=== PATIENT | male | born 1955 | race Caucasian/White ===

== ENCOUNTER 2018-09-30 15:09 | Outpatient (CLI) | payer MEDICARE, SELFPAY ==
--- NOTE | 2018-09-30 15:58 | DI.RAD_ITS ---
SYMPTOMS/DIAGNOSIS: ARTHRITIS RIGHT WRIST: No fracture or dislocation is seen. There is narrowing of the radiocarpal joint space. There is periarticular spurring. There are a few small degenerative subchondral cysts seen in the lunate and scaphoid. The lateral view is limited by motion. There are mild degenerative changes of the 1st carpometacarpal joint. Degenerative changes are also seen at the metacarpophalangeal joints. IMPRESSION: Degenerative changes, greatest at the radiocarpal joint. LEFT WRIST: There are severe degenerative changes of the 1st carpometacarpal joint. There is prominent associated spurring. There is also calcification seen near the triquetrum and pisiform. The bones appear normally mineralized. There are milder degenerative changes in the intercarpal regions. There are degenerative changes of the metacarpophalangeal joints, greatest at the 2nd metacarpophalangeal joint. IMPRESSION: Degenerative changes, greatest at the 1st carpometacarpal joint. Soft tissue calcifications are seen at the ventral aspect of the carpal region. RIGHT ANKLE: There is spurring at the medial malleolus and medial tibiotalar joint space narrowing. No talar dome defects are seen. There are mild degenerative changes at the talonavicular and talocalcaneal joints. There is mild spurring at the Achilles insertion on the calcaneus. IMPRESSION: Mild degenerative changes.
== END 2018-09-30 15:29 ==
PROVIDERS: PCP Internal Medicine; Visit Provider Internal Medicine
DX: M19.071 Primary osteoarthritis, right ankle and foot (principal); M19.031 Primary osteoarthritis, right wrist; M85.441 Solitary bone cyst, right hand; M18.11 Unilateral primary osteoarthritis of first carpometacarpal joint, right hand; M19.032 Primary osteoarthritis, left wrist; M18.12 Unilateral primary osteoarthritis of first carpometacarpal joint, left hand
CPT/HCPCS: 73110; 73610

== ENCOUNTER 2019-01-20 09:32 | Outpatient (CLI) | payer MEDICARE, SELFPAY ==
[2019-01-20 10:14] LABS: Abs Immature Grans 0.17 k/cumm (0.0-0.09); Absolute Basophil Count 0.03 k/cumm (0.0-0.2); Absolute Lymphocyte Count 1.26 k/cumm (1.2-3.4); Absolute Monocyte Count 0.79 k/cumm (0.11-0.7); Absolute Neutrophil Count 6.46 k/cumm (1.2-6.7); Basophils % 0.3; Eosinophils % 1.1; HCT 43.1 % (40.0-50.0); HGB 14.6 g/dL (13.5-17.5); Immature Grans % 1.9; Lymphocytes % 14.3; Mean Corp. HGB Concentration 33.9 g/dL (32.0-36.0); Mean Corpuscular Hemoglobin 27.5 pg (27.0-33.0); Mean Corpuscular Volume 81.2 fL (80-95); Mean Platelet Volume 10.2 fL (8.0-11.0); Neutrophils % 73.4; Platelet Count 250 x1000/uL (130-400); RBC 5.31 m/cumm (4.50-6.00); RBC Distribution Width 16.6 % (11.8-14.1); White Blood Cell Count 8.81 k/cumm (4.4-10.8)
[2019-01-20 11:01] LABS: ALT 18 U/L (12-78); AST 14 U/L (15-37); Albumin 2.9 g/dL (3.4-5.0); Alkaline Phosphatase 97 U/L (46-116); Anion Gap 8.9 mmol/L (3-11); BUN 13 mg/dL (7-18); Bilirubin, Total 1.1 mg/dL (0.2-1.0); CO2 29.1 mmol/L (21.0-32.0); CREATININE 0.72 mg/dL (0.70-1.30); Calcium 8.8 mg/dL (8.5-10.1); Chloride 97 mmol/L (98-107); Glucose 345 mg/dL (70-100); Potassium 4.9 mmol/L (3.5-5.1); Sodium 135 mmol/L (136-145); Total Protein 6.4 g/dL (6.4-8.2)
== END 2019-01-20 09:52 ==
PROVIDERS: PCP Internal Medicine; Visit Provider Internal Medicine Rheumatology
DX: M13.89 Other specified arthritis, multiple sites (principal); Z51.81 Encounter for therapeutic drug level monitoring
CPT/HCPCS: 36415; 80053; 85025

== ENCOUNTER 2019-02-18 17:49 | Outpatient (REF) | payer MEDICARE, SELFPAY ==
[2019-02-18 19:09] LABS: ALT 16 U/L (12-78); AST 5 U/L (15-37); Anion Gap 11.6 mmol/L (3-11); BUN 16 mg/dL (7-18); CO2 28.4 mmol/L (21.0-32.0); Calcium 8.8 mg/dL (8.5-10.1); Chloride 100 mmol/L (98-107); Glucose 151 mg/dL (70-100); Potassium 3.5 mmol/L (3.5-5.1); Sodium 140 mmol/L (136-145)
== END 2019-02-18 18:09 ==
LOC: NCHCN 17:49
PROVIDERS: PCP Internal Medicine; Visit Provider Nurse Practitioner Family
DX: I10 Essential (primary) hypertension (principal); E78.5 Hyperlipidemia, unspecified
CPT/HCPCS: 80048; 84450; 84460

== ENCOUNTER 2019-05-26 11:19 | Outpatient (CLI) | payer MEDICARE, SELFPAY ==
[2019-05-26 11:56] LABS: Abs Immature Grans 0.24 k/cumm (0.0-0.09); Absolute Eosinophil Count 0.01 k/cumm (0.0-0.7); Absolute Lymphocyte Count 0.96 k/cumm (1.2-3.4); Absolute Monocyte Count 0.38 k/cumm (0.11-0.7); Basophils % 0.2; Eosinophils % 0.1; HGB 15.3 g/dL (13.5-17.5); Lymphocytes % 7.9; Mean Corp. HGB Concentration 34.8 g/dL (32.0-36.0); Mean Corpuscular Hemoglobin 30.5 pg (27.0-33.0); Mean Corpuscular Volume 87.8 fL (80-95); Mean Platelet Volume 10.2 fL (8.0-11.0); Monocytes % 3.1; Neutrophils % 86.7; Platelet Count 228 x1000/uL (130-400); RBC 5.01 m/cumm (4.50-6.00); RBC Distribution Width 14.6 % (11.8-14.1); White Blood Cell Count 12.14 k/cumm (4.4-10.8)
[2019-05-26 12:16] LABS: Absolute Basophil Count 0.02 k/cumm (0.0-0.2); Absolute Neutrophil Count 10.53 k/cumm (1.2-6.7)
[2019-05-26 12:55] LABS: ALT 22 U/L (16-63); AST 10 U/L (15-37); Albumin 3.9 g/dL (3.4-5.0); Alkaline Phosphatase 65 U/L (46-116); BUN 17 mg/dL (7-18); Bilirubin, Total 1.2 mg/dL (0.2-1.0); CREATININE 0.95 mg/dL (0.70-1.30); Calcium 9.5 mg/dL (8.5-10.1); Chloride 99 mmol/L (98-107); Glucose 253 mg/dL (70-100); Potassium 5.2 mmol/L (3.5-5.1); Sodium 137 mmol/L (136-145); Total Protein 7.1 g/dL (6.4-8.2)
== END 2019-05-26 11:39 ==
PROVIDERS: PCP Internal Medicine; Visit Provider Internal Medicine Rheumatology
DX: M13.89 Other specified arthritis, multiple sites (principal); Z51.81 Encounter for therapeutic drug level monitoring; Z79.899 Other long term (current) drug therapy
CPT/HCPCS: 36415; 80053; 85025

== ENCOUNTER 2020-03-29 14:29 | Outpatient (REF) | payer SELFPAY ==
[2020-03-29 22:02] LABS: COMMENT (LAB VIEW ONLY) 114.65 mg/dL; Microalb ug/mg Crea 52.9 ug/mg Cr
== END 2020-03-29 14:49 ==
LOC: NCHCN 14:29
PROVIDERS: PCP Internal Medicine; Visit Provider Nurse Practitioner Family
DX: E11.9 Type 2 diabetes mellitus without complications (principal)
CPT/HCPCS: 82043; 82570

== ENCOUNTER 2020-06-22 09:39 | Outpatient (REF) | payer SELFPAY ==
[2020-06-27 15:03] LABS: Patient Race White; SARS-CoV-2 RNA Undetected (Undetected); SARS-CoV-2 Specimen Source Nasal
== END 2020-06-22 09:59 ==
LOC: NCHCN 09:39
PROVIDERS: PCP Internal Medicine; Visit Provider Nurse Practitioner Family
DX: Z11.59 Encounter for screening for other viral diseases (principal)
CPT/HCPCS: U0003

== ENCOUNTER 2020-10-04 13:13 | Outpatient (REF) | payer SELFPAY ==
[2020-10-05 14:39] LABS: COVID-19 RT-PCR UVMMC Result Negative (Negative)
== END 2020-10-04 13:14 | disposition home or self-care (01) ==
LOC: NCHCN 13:13
PROVIDERS: PCP Internal Medicine; Visit Provider Internal Medicine
DX: Z20.822 Contact with and (suspected) exposure to COVID-19 (principal)
CPT/HCPCS: U0003

== ENCOUNTER 2021-06-19 04:01 | Inpatient (IN) | payer MEDICARE, SELFPAY ==
[2021-06-19] VITALS (113 sets, daily range): BP systolic 108–244; BP diastolic 57–222; PULSE 68–108; RESP 11–34; TEMP 36.1–37; O2SAT 88–96
--- NOTE | 2021-06-19 | DI.MRI_ITS ---
Exam(s) MR BRAIN WO/W EXAM: MR BRAIN WO/W CLINICAL HISTORY: bleed on CT. TECHNIQUE: Multiplanar multisequence MRI of the brain was performed. CONTRAST MATERIAL: IV Contrast: 20 ML of Dotarem contrast administered. COMPARISON: CT CT HEAD WO from 06/19/2021 MR MR ANGIO BRAIN WO from 06/19/[address] HEAD WO from 06/19/2021 FINDINGS: VENTRICLES AND EXTRA AXIAL SPACES: Normal in size and morphology for the patient's age. HEMORRHAGE: 5 millimeter rounded focus high T1 signal. No surrounding edema. No enhancement. Marke d blooming artifact on susceptibility weighted images, consistent with a hemorrhagic focus. CEREBRAL PARENCHYMA: No focus of restricted diffusion to suggest acute infarct. No space-occupying le german identified. Minimal white matter changes consistent with microvascular disease. MIDLINE SHIFT: None. BRAINSTEM/CEREBELLUM: Normal. CALVARIUM: Normal. ENHANCEMENT: No suspicious enhancement identified. VISUALIZED PARANASAL SINUSES/MASTOIDS: Clear. OTHER FINDINGS: High right frontal scalp lipoma. IMPRESSION: 5 millimeter hemorrhagic focus right frontal lobe anterior to right lateral ventricle. No surroundin g edema. No evidence of mass.. DATA REPOSITORY:
--- NOTE | 2021-06-19 04:00 | RT.EKG_ITS ---
APPROVED REPORT Exam: Resting ECG Reason for Exam: ?seizure Patient Location: E HR:79 bpm ECG Measurements Heart Rate [address] 224 P 68 QRSd 89 QRS 106 QT 359 T 61 QTc 411 Conclusion Sinus rhythm...normal P axis, V-rate 60- [address] interval...CT >220, V-rate 50- 90 Right axis deviation...QRS axis ( 86,316)
--- NOTE | 2021-06-19 04:15 | DI.CT_ITS ---
Exam(s) CT HEAD WO EXAM: CT HEAD WO CLINICAL HISTORY: ?seizure. TECHNIQUE: Imaging Protocol: Axial computed tomography images with coronal and sagittal reformatted images were created and reviewed COMPARISON: No exams were available for comparison FINDINGS: Ventricles and Extra axial spaces: Normal in size and morphology for the patient's age. Hemorrhage: There is a 5 x 8 millimeter rounded area of high attenuation in the right frontal lobe an terior to the right lateral ventricle which may represent a small focus of hemorrhage. There is no s urrounding mass effect. Cerebral parenchyma: Minimal white matter changes. Minimal atrophy. Midline shift: None. Brainstem/Cerebellum: Normal. Calvarium: Normal. Visualized Paranasal sinuses/Mastoids: Clear. Soft Tissues: Unremarkable. IMPRESSION: Small focus of high attenuation adjacent to the right lateral ventricle could represent a small hemor rhagic focus or other hemorrhagic lesion. RADIATION DOSE DELIVERED: 909.51mGy.cm Total DLP DATA REPOSITORY: All CT scans at this facility are submitted to the National Radiology Data Registry (NRDR) Dose Index Registry (DIR) with the [employer] (A[employer]). RADIATION OPTIMIZATION: All CT scans at this facility use at least one of these dose optimization te chniques: automated exposure control; mA and/or kV adjustment per patient size (includes targeted exa ms where dose is matched to clinical indication); or iterative reconstruction.
--- NOTE | 2021-06-19 04:15 | DI.RAD_ITS ---
Exam(s) XR CHEST 2V PA LATERAL EXAM: XR CHEST 2V PA LATERAL CLINICAL HISTORY: ?syncope TECHNIQUE: 2D digital imaging was performed. COMPARISON: No exams were available for comparison FINDINGS: The exam is limited by patient body habitus and positioning. Abdominal soft tissue somewhat obscure the lower lung field on the AP view. The heart size is within normal limits for projection. Aorta i s mildly tortuous. No focal infiltrate, effusion or pulmonary edema is seen. Degenerative changes a re noted in the spine. IMPRESSION: No acute abnormality. DATA REPOSITORY: RADIATION DOSE DELIVERED:
--- NOTE | 2021-06-19 04:20 | ED.GENADUL_ITS ---
Discharge Plan Disposition Patient Disposition: [facility] INPATIENT Condition: Stable Discharge Details Clinical Impression: Episode of shaking Primary Care Provider: Courtney Bertrand ED Provider: Kendall Ribeiro Home Meds and New Rx's Prescriptions: No Action No Known Home Meds RF: 0 Medical Decision Making 66 yo male who initially told me he had no medical history but then his arrived after initial exam and said he has a history of lung cancer diagnosed in 1997 and is on an expiremental drug for lung cancer currently he receives at [facility] (I could [place] find any [place] [facility] [place] their [place] medical record[place] comes in with getting lightheaded when standing and then has involuntary movements of his arms and legs when he starts to walk. He only has this episode when standing then starting to walk He denies any pain during this episodes and is awake during them. The episodes started around 1am when he got up from bed and went to the bathroom. Nursing had to get him out of his car and came in by wheel chair. When I evaluated him he is in his bed laying with no complaints, caox4. He denies headache, neck pain, fevers, chills, chest pain, shortness of breath, abdominal pain. He has no tremors or other movements when laying in bed. I had him stand up and he took one step and he then started to have rhythmic movement of both arms and legs and lasted about 2 minutes after he sat down. He has no focal neuro deficits on exam when in the stretcher, no deficits in sensation and normal strength, CN II-XII intact. Unclear etiology for his symptoms when he stands, could be orthostasis induced though also possibility of seizures. Will evaluate with ekg, head ct, cxr given his lung cancer history to evaluate for lung mass, and evaluate for possible electrolyte abnormalities. labs unremarkable other than glucose of 400 and normal anion gap, suspect undiagnosed diabetes. CT head shows small focus of hyperdensity in the right frontalperiventricular white matter suspicious of hemorrhage or hemorrhagic lesion and recommend MRi for further evaluation. Discussed with pt who continues to have no symptoms when laying down. Will discuss with hospitalist for admission for mri and further workup Differential Diagnosis Differential Diagnosis: orthostasis, seizure, tremor Imaging Data Radiologic Study: Attestation: I personally reviewed and interpreted this imaging study as follows: Imaging: CT Scan Radiologic Study #2: Attestation: I personally reviewed and interpreted this imaging study as follows: Imaging: X-Ray My impression: no acute findings ECG Data Attestation: I personally reviewed and interpreted this ECG (s) as follows: Prior ECG tracings: not available for review Interpretation: sinus rhythm, rate of 80, no acute st t wave ischemic findings HPI General Mode of arrival: wheelchair . Date/Time Provider Initiated Documentation: 06/19/21 04:06 . Limitations to Documentation: no limitations . Information obtained by: patient and family . History of Present Illness 66 year old M presents to the emergency department with the chief complaint of shaking when standing up, described as moderate, Patient reports no radiation. Patient started experiencing this hour(s) (6) and it has been intermittent. No relieving factors improve symptom(s), Other factors that w orsen symptoms (standing up) . Patient notes no other symptoms.. Related Data Home Medications Medication Instructions Recorded Confirmed Unknown [No Known Home Meds] 06/19/21 06/19/21 Allergies Allergy/AdvReac Type Severity Reaction Status Date / Time No Known Allergies Allergy Unverified 06/19/21 04:10 General Stated Complaint: GenMedical JAQUAN: 3 Review of Systems All systems reviewed & are unremarkable except as noted in HPI and below Constitutional Constitutional: Denies chills, Denies fever(s) and Denies weakness Cardiovascular Cardiovascular: Denies chest pain and Denies dyspnea Respiratory Respiratory: Denies cough and Denies dyspnea Gastrointestinal Gastrointestinal: Denies abdominal pain, Denies nausea and Denies vomiting Musculoskeletal Musculoskeletal: Denies joint swelling Neurologic Neurologic: Denies weakness [facility] Social History Smoking/Tobacco Use Status: Former Tobacco Use Smoking risk assessment performed?: Yes Alcohol Intake: never Drug use: Never Do you feel safe at home: Yes Do you feel safe in your relationship?: Yes Exam Const General: no acute distress Orientation: alert HENMT Head: normal to inspection Ears: external ears normal General nose exam: external nose normal Mouth: moist mucous membranes Eyes General: appearance normal, both eyes and all related structures Neck Neck: normal visual inspection Resp Effort & Inspection: normal respiratory effort and able to speak in complete sentences Cardio Rate: regular rate Skin General skin exam: no rashes or lesions noted Neuro General: patient alert and patient oriented x3 Extrem General: normal to inspection Psych Mental Status: mental status grossly normal Course Vital Signs Vital signs: Vital Signs Temperature 37.0 C 10/26/21 04:04 Pulse 85 06/19/21 04:04 Respiratory Rate 18 06/19/21 04:04 Blood Pressure 173/81 H 06/19/21 04:04 Pulse Oximetry 91 L 06/19/21 04:04 Temperature 37.0 C 06/19/21 04:04 Temperature Source Temporal Artery Scan 06/19/21 04:04 Pulse 85 06/19/21 04:04 Respiratory Rate 18 06/19/21 04:04 Respiratory Effort 06/19/21 04:08 Blood Pressure 173/81 H 06/19/21 04:04 Blood Pressure Position Supine 06/19/21 04:04 Pulse Oximetry 91 L 06/19/21 04:04 Oxygen Delivery Method Room Air 06/19/21 04:04 Oxygen Flow Rate 0 06/19/21 04:04 Pain Level 0 06/19/21 04:04
[2021-06-19 04:32] LABS: Abs Immature Grans 0.08 10^3/uL (0.0-0.06); Absolute Basophil Count 0.07 10^3/uL (0.0-0.2); Absolute Eosinophil Count 0.13 10^3/uL (0.0-0.7); Absolute Lymphocyte Count 1.33 10^3/uL (1.2-3.4); Absolute Monocyte Count 0.62 10^3/uL (0.1-0.8); Absolute Neutrophil Count 5.69 10^3/uL (1.2-6.7); BE (Venous) 3 mmol/L (-2-3); Basophils % 0.9; Eosinophils % 1.6; HCO3 (Venous) 29 mmol/L (23-28); HGB 16.7 g/dL (13.5-17.5); Lymphocytes % 16.8; MCHC 34.1 % (32.0-36.0); MCV 85.1 fL (80-95); MPV 10.6 fL (8.0-11.0); Monocytes % 7.8; Neutrophils % 71.9; Nucleated RBC 0 %; O2 Sat (Venous) 89 %; Platelet Count 180 10^3/uL (130-400); RBC 5.76 10^6/uL (4.36-5.78); RDW 12.8 % (11.8-14.1); RDW-SD 39.5 fL; TCO2 (Venous) 25 mmol/L (24-29); WBC 7.92 10^3/uL (4.4-10.8); pCO2 (Venous) 56 mmHg (41-51); pH (Venous) 7.32 (7.31-7.41); pO2 (Venous) 58 mmHg
[2021-06-19 04:33] LABS: Source Nasal/Nares
[2021-06-19 04:54] LABS: INR 0.9 (0.9-1.1); PTT Activated 22.7 sec (21.0-27.5); Prothrombin Time 9.3 sec (9.3-11.0)
[2021-06-19 04:55] LABS: ALT 26 U/L (16-63); AST 14 U/L (15-37); Albumin 3.5 g/dL (3.4-5.0); Alkaline Phosphatase 94 U/L (46-116); Anion Gap 6.7 mmol/L (3-11); BUN 20 mg/dL (7-18); Bilirubin, Direct 0.2 mg/dL (0.0-0.2); Bilirubin, Total 0.8 mg/dL (0.2-1.0); CO2 30.3 mmol/L (21.0-32.0); Chloride 99 mmol/L (98-107); Glucose 412 mg/dL (74-106); Sodium 136 mmol/L (136-145); TSH (W/Ref FT4) 2.93 uIU/mL (0.36-3.74); Total Protein 7.4 g/dL (6.4-8.2)
[2021-06-19 04:56] LABS: ETHANOL BLOOD < 3.0 mg/dL (<10); Troponin I < 0.05 ng/mL (<0.06)
--- NOTE | 2021-06-19 05:05 | DI.VRAD_ITS ---
Addendum created by Lisandro Lund DO on 06/19/2021 5:06:13 AM EDT: THIS REPORT CONTAINS FINDINGS THAT MAY BE CRITICAL TO PATIENT CARE. The findings were verbally communicated via telephone conference at 5:05 AM EDT on 06/19/2021 with Kendall Ribeiro. The findings were acknowledged and understood. Initial report created on 06/19/2021 5:05:16 AM EDT: PROCEDURE INFORMATION: Exam: CT Head Without Contrast Exam date and time: 06/19/2021 4:16 AM Age: 66 years old Clinical indication: Alteration of consciousness; Patient HX: ? Syncope, ? seizure TECHNIQUE: Imaging protocol: Computed tomography of the head without contrast. Other technique: STROKE PROTOCOL was implemented. COMPARISON: No relevant prior studies available. FINDINGS: Brain: There is 8 x 5 mm hyperdensity in the right frontal periventricular white matter adjacent the frontal horn of the right lateral ventricle (image 30 series 2). No adjacent edema is discernible. Dow-white matter differentiation is within normal limits. No mass effect or midline shift. No extra-axial fluid collection. Mild nonspecific patchy foci of periventricular white matter hypodensity. Cerebral ventricles: Ventricles, sulci and basal cisterns are within normal limits. Paranasal sinuses: Visualized sinuses are unremarkable. No fluid levels. Mastoid air cells: Visualized mastoid air cells are well aerated. Bones/joints: No acute fracture. Soft tissues: Unremarkable. IMPRESSION: Small focus of hyperdensity in the right frontal periventricular white matter, suspicious of hemorrhage or hemorrhagic lesion. No significant mass effect or brain herniation. ASSESSMENT: ASPECTS ([place] Stroke Program Early CT Score) is 10. Dictated and Authenticated by: Lisandro Lund MD. Ordering:TRACEY Argueta MD
--- NOTE | 2021-06-19 05:07 | DI.VRAD_ITS ---
PROCEDURE INFORMATION: Exam: XR Chest Exam date and time: 06/19/2021 4:16 AM Age: 66 years old Clinical indication: Other: Syncope TECHNIQUE: Imaging protocol: XR of the chest. Views: 2 views. COMPARISON: No relevant prior studies available. FINDINGS: Lungs: Unremarkable. No consolidation. Pleural spaces: Unremarkable. No pleural effusion. No pneumothorax. Heart/Mediastinum: Unremarkable. No cardiomegaly. Bones/joints: Unremarkable. IMPRESSION: No acute findings. Dictated and Authenticated by: Lisandro Lund MD. Ordering:TRACEY Argueta MD
[2021-06-19 05:45] LABS: Bilirubin Negative (Negative); Blood Negative (Negative); Clarity Clear (Clear); Glucose 500 mg/dL (Negative); Ketones Negative (Negative); Leukocyte Esterase Negative (Negative); Nitrite Negative (Negative); Urobilinogen 0.2 EU/dL (Up TO 0.2); pH 5.5 (5-8)
--- NOTE | 2021-06-19 05:46 | W.PM.HP.N ---
Date of service: 06/19/21 Time of Service: 05:46 Assessment and Plan Assessment and plan (1) Episode of shaking: Status: Acute Assessment and plan: I am not sure how to explain this, and in any case how, if at all, it might relate to brain lesion, which anatomically would not be expected to produce symptoms such as these. The spell itself is notably orthhostatic, but not (apparently) related to blood pressure (the caveat here is that he was asymptomatic during orthostatic BP check for me). Does not sound like seizure insofar as there was no alteration in consciousness despite bilateral symptoms. beyond this the symptoms appear to have resolved. It is possible there is some functional component. What is more definite then is: 1. Apparent hemorrhage in frontal lobe. MRI advised for further delineation. Perhaps hypertensive bleed, or perhaps underlying lesion. 2. HTN: will begin treatment. In light of DM will start with PRAFUL 3. DM: states he was once on Metformin. At current level of hyperglycemia will begin with low dose insulin, may be able to convert to oral agent at some point. History of Present Illness History of Present Illness Chief Complaint: body shaking with standing Narrative: 66 male with remote h/o lung CA (1990s per ER) and DM, at present has not been to doctor for many years. Tonight when getting up to go to bathroom experienced a total body shaking. No LOC , was able to understand his , remembers the event, though apparently had some trouble speaking during spell. Resolved with sitting down. Here in ER findings of note for initial BP 173/81 and was noted to be either ataxic or shaking with standing. Labs of note for glucose [address] showing 8x5mm hemorrhagic lesion frontally adjacent to lateral ventricle. I was called to evaluate for admission. Patient denies GAFFNEY, nausea. Does endorse polyuria/polydipsia Review of Systems All systems reviewed & are unremarkable except as noted in HPI and below PFSH Social History Smoking/Tobacco Use Status: Former Tobacco Use Smoking risk assessment performed?: Yes Alcohol Intake: never Drug use: Never Do you feel safe at home: Yes Do you feel safe in your relationship?: Yes Meds Allergies and Home Medications Allergies Allergy/AdvReac Type Severity Reaction Status Date / Time No Known Allergies Allergy Unverified 06/19/21 04:10 Home Medications Medication Instructions Recorded Confirmed Type Unknown [No Known Home Meds] 06/19/21 06/19/21 History Exam Narrative Exam Narrative: Orthostatics (by myself) supine 166/72, pulse 82; standing 169/93, pulse 82; 37.0, 22, 95% RA. HEENT atraumatic; neck supple; lungs clear; heart RRR; abdomen protruberant, soft and NT; extremities 1+ pedal edema with scattered psoriatic plaques; neuro Ox3, PERRL, EOMI, no facila asymmetry, motor 5/5, sensory intact light touch, when asked to stand there is no shaking and gait is normal Results Labs Result diagrams: 06/19/21 04:20 06/19/21 04:20 Labs: Laboratory Results - last 24 hr 06/19/21 06/19/21 06/19/21 04:20 04:20 04:20 WBC 7.92 RBC 5.76 Hgb 16.7 Hct 49.0 MCV 85.1 MCH 29.0 MCHC 34.1 RDW 12.8 Plt Count 180 MPV 10.6 Immature Gran % 1.0 Neutrophils % 71.9 Lymphocytes % 16.8 Monocytes % 7.8 Eosinophils % 1.6 Basophils % 0.9 Nucleated RBC % 0 Absolute Neutrophils 5.69 Absolute Lymphocytes 1.33 Absolute Monocytes 0.62 Absolute Eosinophils 0.13 Absolute Basophils 0.07 PT 9.3 INR 0.9 APTT 22.7 VBG pH VBG pCO2 VBG pO2 VBG HCO3 VBG Total CO2 VBG O2 Saturation VBG Base Excess Sodium 136 Potassium 5.0 Chloride 99 Carbon Dioxide 30.3 Anion Gap 6.7 BUN 20 H Creatinine 1.0 Estimated GFR/1.73 m2 >= 60.00 Glucose 412 H Calcium 9.0 Magnesium 2.0 Total Bilirubin 0.8 Conjugated Bilirubin 0.2 AST 14 L ALT 26 Alkaline Phosphatase 94 Troponin I < 0.05 Total Protein 7.4 Albumin 3.5 TSH 2.93 Ethyl Alcohol < 3.0 COVID-19 Source 06/19/21 06/19/21 04:20 04:25 WBC RBC Hgb Hct MCV MCH MCHC RDW Plt Count MPV Immature Gran % Neutrophils % Lymphocytes % Monocytes % Eosinophils % Basophils % Nucleated RBC % Absolute Neutrophils Absolute Lymphocytes Absolute Monocytes Absolute Eosinophils Absolute Basophils PT INR APTT VBG pH 7.32 VBG pCO2 56 H VBG pO2 58 VBG HCO3 29 H VBG Total CO2 25 VBG O2 Saturation 89 VBG Base Excess 3 Sodium Potassium Chloride Carbon Dioxide Anion Gap BUN Creatinine Estimated GFR/1.73 m2 Glucose Calcium Magnesium Total Bilirubin Conjugated Bilirubin AST ALT Alkaline Phosphatase Troponin I Total Protein Albumin TSH Ethyl Alcohol COVID-19 Source Nasal/Nares Last Vital Signs Temp 37.0 C 06/19/21 04:04 Pulse 81 06/19/21 04:08 Resp 22 06/19/21 04:10 BP 173/81 H 06/19/21 04:08 Pulse Ox 95 06/19/21 04:10
[2021-06-19 05:52] LABS: Bacteria Negative HPF (Negative); C & S Indicated? No; COVID-19 PCR Negative (Negative); Casts Negative LPF (Negative); Crystals Negative HPF (Negative); Epithelial Cells Negative HPF (Negative); Mucus Negative (Negative); RBC Negative HPF (0-2); WBC Negative HPF (0-5)
[2021-06-19] MEDS: Insulin REGULAR-Human 100 UNITS/ML UNIT SC (06:53)
[2021-06-19] MEDS: Lisinopril 5 MG TAB (06:56)
--- NOTE | 2021-06-19 08:27 | PGE_ITS ---
Date of Service Date of service: 06/19/21 Time of Service: 12:16 Assessment and Plan Assessment and plan (1) Cerebral hemorrhage: Status: Acute Assessment and plan: Cause unclear. No evidence of malignancy per MRI. Await neurology consult. Keep in ICU. Until further instructions, will use nicardepene gtt to keep SBP<=140. Avoid chemical DVT ppx, NSAIDs. (2) Episode of shaking: Status: Acute Assessment and plan: Does seem to temporarily coincide with #1. ?Ataxia. Await neuro c/s. PT c/s tomorrow. (3) Diabetes mellitus: Status: Chronic Assessment and plan: Check A1C. Cover with SSI - may require long acting insulin as well. Consulted diabetes education. (4) Hypoxia: Status: Acute Assessment and plan: CXR negative. I suspect that this is actually chronic. Will evaluate with exercise oximetry on d/c. COVID-19 ruled out. (5) Hypertension: Status: Chronic Assessment and plan: Continue lisinopril initiated by Dr Tapia (6) Obesity (BMI 30-39.9): Status: Chronic Assessment and plan: At high risk for KOLBY/OHS. Will need an outpatient referral. (7) DVT prophylaxis: Status: Acute Assessment and plan: SCDs. Chemical DVT ppx is contraindicated in setting of brain bleed. (8) Discharge planning issues: Status: Acute Assessment and plan: Upgraded to ICU level of care. Total Critical Care Time [address] Eller and with patient's Rachel ([phone]). Subjective Subjective Interval history since last seen: Mr Duran denies dizziness, headache, visual changes, numbness/tingling/weakness. The last time he tried to get up to use the commode, he was not shaky, but this morning had a shaking episode while standing up to urinate. Talking during the episode. This seems to happen within 30 seconds of getting up. Has not required initiation of nicardepene gtt. Wonders if this happened because of a coughing spell - He does cough a lot at home (chronic smoker's cough, he says). Dr Eller is consulted. No xfer to a tertiary care facility indicated, per neuro. Exam Narrative Exam Narrative: General: Pleasant obese middle-aged male, 1L of O2 by NC (92%), no distress, A&Ox3, no focal deficits while in bed HEENT: EOMI, MMM Heart: RRR, no m/r/g Lungs: CTAB Abdomen: soft, nontender, nondistended Extremities: no edema BLE's, 5/5 strength throughout. Objective Last Vital Signs Temp 36.5 C 06/19/21 07:47 Pulse 89 06/19/21 07:47 Resp 19 06/19/21 07:30 BP 170/68 H 06/19/21 07:26 Pulse Ox 92 06/19/21 07:47 Laboratory Results - last 24 hr 06/19/21 06/19/21 06/19/21 04:20 04:20 04:20 WBC 7.92 RBC 5.76 Hgb 16.7 Hct 49.0 MCV 85.1 MCH 29.0 MCHC 34.1 RDW 12.8 Plt Count 180 MPV 10.6 Immature Gran % 1.0 Neutrophils % 71.9 Lymphocytes % 16.8 Monocytes % 7.8 Eosinophils % 1.6 Basophils % 0.9 Nucleated RBC % 0 Absolute Neutrophils 5.69 Absolute Lymphocytes 1.33 Absolute Monocytes 0.62 Absolute Eosinophils 0.13 Absolute Basophils 0.07 PT 9.3 INR 0.9 APTT 22.7 VBG pH VBG pCO2 VBG pO2 VBG HCO3 VBG Total CO2 VBG O2 Saturation VBG Base Excess Sodium 136 Potassium 5.0 Chloride 99 Carbon Dioxide 30.3 Anion Gap 6.7 BUN 20 H Creatinine 1.0 Estimated GFR/1.73 m2 >= 60.00 Glucose 412 H Calcium 9.0 Magnesium 2.0 Total Bilirubin 0.8 Conjugated Bilirubin 0.2 AST 14 L ALT 26 Alkaline Phosphatase 94 Troponin I < 0.05 Total Protein 7.4 Albumin 3.5 TSH 2.93 Urine Color Urine Clarity Urine pH Ur Specific [place] Urine Protein Urine Ketones Urine Blood Urine Nitrite Urine Bilirubin Urine Urobilinogen Ur Leukocyte Esterase Urine RBC Urine WBC Ur Epithelial Cells Urine Crystals Urine Bacteria Urine Casts Urine Mucus Ur Culture Indicated? Urine Glucose Ethyl Alcohol < 3.0 COVID-19 Source SARS-CoV-2 (PCR) 06/19/21 06/19/21 06/19/21 04:20 04:25 04:25 WBC RBC Hgb Hct MCV MCH MCHC RDW Plt Count MPV Immature Gran % Neutrophils % Lymphocytes % Monocytes % Eosinophils % Basophils % Nucleated RBC % Absolute Neutrophils Absolute Lymphocytes Absolute Monocytes Absolute Eosinophils Absolute Basophils PT INR APTT VBG pH 7.32 VBG pCO2 56 H VBG pO2 58 VBG HCO3 29 H VBG Total CO2 25 VBG O2 Saturation 89 VBG Base Excess 3 Sodium Potassium Chloride Carbon Dioxide Anion Gap BUN Creatinine Estimated GFR/1.73 m2 Glucose Calcium Magnesium Total Bilirubin Conjugated Bilirubin AST ALT Alkaline Phosphatase Troponin I Total Protein Albumin TSH Urine Color Yellow Urine Clarity Clear Urine pH 5.5 Ur Specific [place] 1.020 Urine Protein 100 H Urine Ketones Negative Urine Blood Negative Urine Nitrite Negative Urine Bilirubin Negative Urine Urobilinogen 0.2 Ur Leukocyte Esterase Negative Urine RBC Negative Urine WBC Negative Ur Epithelial Cells Negative Urine Crystals Negative Urine Bacteria Negative Urine Casts Negative Urine Mucus Negative Ur Culture Indicated? No Urine Glucose 500 H Ethyl Alcohol COVID-19 Source Nasal/Nares SARS-CoV-2 (PCR) Negative 06/19/21 07:14 WBC RBC Hgb Hct MCV MCH MCHC RDW Plt Count MPV Immature Gran % Neutrophils % Lymphocytes % Monocytes % Eosinophils % Basophils % Nucleated RBC % Absolute Neutrophils Absolute Lymphocytes Absolute Monocytes Absolute Eosinophils Absolute Basophils PT INR APTT VBG pH VBG pCO2 VBG pO2 VBG HCO3 VBG Total CO2 VBG O2 Saturation VBG Base Excess Sodium Potassium Chloride Carbon Dioxide Anion Gap BUN Creatinine Estimated GFR/1.73 m2 Glucose Calcium Magnesium Total Bilirubin Conjugated Bilirubin AST ALT Alkaline Phosphatase Troponin I Cancelled Total Protein Albumin TSH Urine Color Urine Clarity Urine pH Ur Specific [place] Urine Protein Urine Ketones Urine Blood Urine Nitrite Urine Bilirubin Urine Urobilinogen Ur Leukocyte Esterase Urine RBC Urine WBC Ur Epithelial Cells Urine Crystals Urine Bacteria Urine Casts Urine Mucus Ur Culture Indicated? Urine Glucose Ethyl Alcohol COVID-19 Source SARS-CoV-2 (PCR)
--- NOTE | 2021-06-19 08:30 | DI.MRI_ITS ---
Exam(s) MR ANGIO NECK WO EXAM: MR ANGIO NECK WO CLINICAL HISTORY: ?CVA/brain bleed. TECHNIQUE: 2D and 3D [id number] studies were performed. COMPARISON: MR MR BRAIN WO/W from 06/19/2021 MR MR ANGIO BRAIN WO from 06/19/2021 MR MR ANGIO BRAIN WO from 06/19/2021 FINDINGS: The 3D [id number] study at the bifurcation is limited by motion. There is no significant stenosi s. There is no evidence of occlusion or dissection of the common, internal or external carotid arter ies or vertebral arteries.. IMPRESSION: Normal MRA of the neck. DATA REPOSITORY:
--- NOTE | 2021-06-19 08:30 | DI.MRI_ITS ---
Exam(s) MR ANGIO BRAIN WO CLINICAL HISTORY: question of CVA/brain bleed. TECHNIQUE: Multiplanar multisequence MRA of the brain was performed. IV Contrast: 20 mL of Magnevist contrast administered. COMPARISON: None. FINDINGS: Carotid Arteries: Petrous: Normal. Cavernous: Normal. Cerebral: Normal. Middle Cerebral Arteries: Right: No aneurysm or significant stenosis. Left: No aneurysm or significant stenosis. Anterior Cerebral Arteries: Right: No aneurysm or significant stenosis. Left: No aneurysm or significant stenosis. Vertebral Arteries: Right: No aneurysm or significant stenosis. Left: No aneurysm or significant stenosis. . Basilar Artery: No aneurysm or significant stenosis. Small Vessels: No evidence of beading. IMPRESSION: Normal MRA examination of the [place]. DATA REPOSITORY:
--- NOTE | 2021-06-19 09:50 | INITIAL_ITS ---
- If Service Date Differs Date of service: 06/19/21 Time of Service: 09:50 Care Management Initial Assess REASON FOR HOSPITALIZATION:: Shaking spell, brain hemorrhage. PAST MEDICAL HISTORY/PAST SURGICAL HISTORY:: Medical History: History of lung cancer (1997). No surgical history of record. PREVIOUS FUNCTIONAL STATUS/SOCIAL/FAMILY SUPPORTS:: Gerardo lives in [place] with his , Rachel, and their dog (Pug). 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 Gerardo names his , Rachel, and his brother, Clem, as his family supports. CURRENT FUNCTIONAL STATUS:: Gerardo is lying in bed when CM comes to meet with him. His , Rachel is present in the room. Gerardo easily engages in conversation. He states he is feeling better and hopes to be able to return home soon. ADVANCE DIRECTIVES:: None on file; CM offers a form and Gerardo declines. Has patient been provided with info about the portal/API?: Yes Did the patient sign up for the portal?: No (Not interested.) CODE STATUS:: Full Code INSURANCE COVERAGE / FINANCIAL ISSUES:: Medicare Part A only. CM provides patient's with a Patient Assistance packet at her request. CURRENT HOME/COMMUNITY SERVICES/EQUIPMENT:: None. Gerardo is independent at baseline. PRIMARY CARE PHYSICIAN:: Pj Hennessy MD ([facility]). POTENTIAL DISCHARGE NEEDS:: Follow up appointment with PCP. PATIENT/FAMILY EDUCATION NEEDS:: Review discharge instructions regarding medications and activity level; discussion of self care needs including Ask Me Three. ANTICIPATED BARRIERS TO DISCHARGE:: No anticipated barriers at this time. TRANSPORTATION:: His , Rachel, will drive him home via private vehicle. PLAN:: Gerardo will likely be discharged home with no new services when medically cleared by provider. He will follow up with his PCP and discharge plan of care as directed. His , Rachel, will drive him home via private vehicle when ready. CM will continue to follow.
[2021-06-19] MEDS: Normal Saline Flush 10 ML SYR IVP (10:15)
[2021-06-19] MEDS: Gadoterate meglumine 20 ML VIAL IVP (10:16)
[2021-06-19] MEDS: niCARdipine 25 MG in Normal Saline 240 ML 50 MG IV (10:58)
[2021-06-19] MEDS: Insulin Aspart 300 UNITS/3 ML PEN SC ×4 (10:58→21:33)
--- NOTE | 2021-06-19 17:15 | NCONE_ITS ---
Date of service: 06/19/21 Time of Service: 17:15 Assessment and Plan Assessment and plan (1) Hemorrhagic stroke: Status: Acute (2) Episode of shaking: Status: Acute Assessment and plan: #1. Hemorrhagic stroke. This appears to be an incidental finding. It is in an odd location. No evidence of aneurysm. Likely due to long-standing hypertension. Agree with keeping SBP <140. Would get TTE as further work-up. #2. Shaking episodes. ?Toxic-metabolic? Myoclonus? They don't sound like seizure. Not consistent with orthostatic tremor. These seemed to have improved. Will continue to monitor. History of Present Illness History of Present Illness Chief Complaint: stroke Narrative: Handedness: right. HPI: Mr. Duran is a 66 year-old man with hypertension, hyperlipidemia, diabetes type 2, remote lung cancer with chronic cough, COPD, former smoker, psoriasis, and a history of medication resistance; not on any medications as an outpatient at present. He awoke at ~1am this am to use the bathroom, but once he started to walk, he had generalized shaking. He had no LOC with this. He was able to hear everything going on, but unable to talk. This resulted in a fall. 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 He eventually presented to the [facility] ER and was admitted after found to have a small right frontal periventricular hemorrhage. BP 173/ 81, glucose >400, TSH 2.93, trop neg x 1, urine spec grav 1.020. Since admission, the shaking has decreased in frequency. Now can walk without shaking. He otherwise has no headache. He uses ibuprofen infrequently. He has been started on lisinopril for his hypertension with goal <140 systolic. He has been started on O2 via NC for mild hypoxemia. He has chronic cough and notes significant SOB when climbing his stairs at home. Work-up: -CTH: small right frontal periventruclar hemorrhage. I reviewed these images personally and this is my personal interpretation. -MRI brain w/wo: hemorrhage as above. No mass. No ischemic lesions. Noted old right frontal microhemorrhage. Mild chronic small vessel disease changes. I reviewed these images personally and this is my personal interpretation. -MRA head/neck: atherosclerosis noted throughout, no significant stenosis. I reviewed these images personally and this is my personal interpretation. Consults Requesting physician: Liz Freeman Review of Systems All systems reviewed & are unremarkable except as noted in HPI and below PFSH Medical History (Updated 06/19/21 @ 19:53 by Gracy Eller MD) Chronic cough COPD (chronic obstructive pulmonary disease) Diabetes mellitus Hyperlipidemia Hypertension Lung cancer Psoriasis Social History Smoking/Tobacco Use Status: Former Tobacco Use Smoking risk assessment performed?: Yes Alcohol Intake: never Drug use: Never Do you feel safe at home: Yes Do you feel safe in your relationship?: Yes Visit Medication and Allergies Active Medications Generic Name Dose Route Start Last Admin Trade Name Freq PRN Reason Stop Dose Admin Dextrose 0 gm 06/19/21 06:12 Glucose 40% Oral Solution 15 Gm/37.5 Gm Tube PO DIRECTED PRN Dextrose/Water 0 gm 06/19/21 06:12 Dextrose 50%-Water 25 Gm/50 Ml Syr IVP DIRECTED PRN Dimethicone/Zinc Oxide 0 gm 06/19/21 06:12 Milagros Protect Cream 142 Gm Tube TP PRN PRN Gadoterate Meglumine 20 ml 06/19/21 10:30 06/19/21 10:16 Gadoterate Meglumine 20 Ml Vial IVP 07/19/21 23:59 20 ml DIRECTED DONI Administration Nicardipine HCl 25 mg/ Sodium 250 mls @ 5 mls/hr 06/19/21 09:30 06/19/21 10:59 Chloride IV 0 mg/hr INFUSION DONI 0 mls/hr Titration Protocol Per Protocol IV Miscellaneous Supplies 1 each 06/19/21 04:15 Iv Access IV DIRECTED DONI Insulin Aspart 0 units 06/19/21 17:00 06/19/21 13:48 Insulin Aspart 300 Units/3 Ml Pen SC 5 units 0800,1200,1700,2200 DONI Administration Protocol Lisinopril 5 mg 06/20/21 08:30 Lisinopril 5 Mg Tab PO DAILY DONI Sodium Chloride 0 ml 06/19/21 04:14 Normal Saline Flush 10 Ml Syr IVP PRN PRN Sodium Chloride 10 ml 06/19/21 10:15 06/19/21 10:15 Normal Saline Flush 10 Ml Syr IVP 10 ml PRN PRN Administration Allergies No Known Allergies Allergy (Unverified 06/19/21 04:10) Exam Narrative Exam Narrative: Physical Exam: Gen: Patient of apparent stated age, NAD, BMI 38 Head and face: no facial or cranial abnormalities Neck: Supple, no meningismus, no occipital tenderness CV: + S1, S2, RRR, no murmur Resp: CTA B/L Abd: soft, nontender, nondistended Ext: No edema. No clubbing or cyanosis. No bony deformity. Neuro Exam: Language: fluency, naming, repetition, and comprehension intact; Mental Status: AAOx3, current events intact, fund of knowledge intact; Speech: no dysarthria Cranial nerves: Funduscopy: not performed CN II: visual rodrigues intact CN III, IV, : extraocular movements intact, no nystagmus, pupils symmetric and reactive to light CN V: face sensation intact to LT and PP CN VII: no facial asymmetry noted CN VIII: hearing intact bilaterally CN IX, X: palate rises symmetrically CN XI: trapezius/SCM 5/5 bilaterally CN XII: protrudes tongue symmetrically Sensory: intact to LT, vibration, and joint position in all extremities; unable to feel PP in any limb - could feel in torso Motor: bulk and tone intact. Fine motor movements slightly reduced bilaterally. No pronator drift. Strength 5/5 throughout limited by poor ROM in bilateral s houlders. no tremors seen. Reflexes: 2+ at the biceps, triceps, brachioradialis, patella, and achilles tendons bilaterally; toes down going bilaterally; Coordination: FTN and HTS intact bilaterally Gait: had him walk a few steps in room with no shaking seen Results Last Vital Signs Temp 97.5 F L 06/19/21 12:30 Pulse 86 06/19/21 16:01 Resp 16 06/19/21 16:01 BP 130/69 06/19/21 16:01 Pulse Ox 94 06/19/21 16:01 Labs Result diagrams: 06/19/21 04:20 06/19/21 04:20 Labs: Laboratory Results - last 24 hr 06/19/21 06/19/21 06/19/21 04:20 04:20 04:20 WBC 7.92 RBC 5.76 Hgb 16.7 Hct 49.0 MCV 85.1 MCH 29.0 MCHC 34.1 RDW 12.8 Plt Count 180 MPV 10.6 Immature Gran % 1.0 Neutrophils % 71.9 Lymphocytes % 16.8 Monocytes % 7.8 Eosinophils % 1.6 Basophils % 0.9 Nucleated RBC % 0 Absolute Neutrophils 5.69 Absolute Lymphocytes 1.33 Absolute Monocytes 0.62 Absolute Eosinophils 0.13 Absolute Basophils 0.07 PT 9.3 INR 0.9 APTT 22.7 VBG pH VBG pCO2 VBG pO2 VBG HCO3 VBG Total CO2 VBG O2 Saturation VBG Base Excess Sodium 136 Potassium 5.0 Chloride 99 Carbon Dioxide 30.3 Anion Gap 6.7 BUN 20 H Creatinine 1.0 Estimated GFR/1.73 m2 >= 60.00 Glucose 412 H Calcium 9.0 Magnesium 2.0 Total Bilirubin 0.8 Conjugated Bilirubin 0.2 AST 14 L ALT 26 Alkaline Phosphatase 94 Troponin I < 0.05 Total Protein 7.4 Albumin 3.5 TSH 2.93 Urine Color Urine Clarity Urine pH Ur Specific [place] Urine Protein Urine Ketones Urine Blood Urine Nitrite Urine Bilirubin Urine Urobilinogen Ur Leukocyte Esterase Urine RBC Urine WBC Ur Epithelial Cells Urine Crystals Urine Bacteria Urine Casts Urine Mucus Ur Culture Indicated? Urine Glucose Ethyl Alcohol < 3.0 COVID-19 Source SARS-CoV-2 (PCR) 06/19/21 06/19/21 06/19/21 04:20 04:25 04:25 WBC RBC Hgb Hct MCV MCH MCHC RDW Plt Count MPV Immature Gran % Neutrophils % Lymphocytes % Monocytes % Eosinophils % Basophils % Nucleated RBC % Absolute Neutrophils Absolute Lymphocytes Absolute Monocytes Absolute Eosinophils Absolute Basophils PT INR APTT VBG pH 7.32 VBG pCO2 56 H VBG pO2 58 VBG HCO3 29 H VBG Total CO2 25 VBG O2 Saturation 89 VBG Base Excess 3 Sodium Potassium Chloride Carbon Dioxide Anion Gap BUN Creatinine Estimated GFR/1.73 m2 Glucose Calcium Magnesium Total Bilirubin Conjugated Bilirubin AST ALT Alkaline Phosphatase Troponin I Total Protein Albumin TSH Urine Color Yellow Urine Clarity Clear Urine pH 5.5 Ur Specific [place] 1.020 Urine Protein 100 H Urine Ketones Negative Urine Blood Negative Urine Nitrite Negative Urine Bilirubin Negative Urine Urobilinogen 0.2 Ur Leukocyte Esterase Negative Urine RBC Negative Urine WBC Negative Ur Epithelial Cells Negative Urine Crystals Negative Urine Bacteria Negative Urine Casts Negative Urine Mucus Negative Ur Culture Indicated? No Urine Glucose 500 H Ethyl Alcohol COVID-19 Source Nasal/Nares SARS-CoV-2 (PCR) Negative 06/19/21 07:14 WBC RBC Hgb Hct MCV MCH MCHC RDW Plt Count MPV Immature Gran % Neutrophils % Lymphocytes % Monocytes % Eosinophils % Basophils % Nucleated RBC % Absolute Neutrophils Absolute Lymphocytes Absolute Monocytes Absolute Eosinophils Absolute Basophils PT INR APTT VBG pH VBG pCO2 VBG pO2 VBG HCO3 VBG Total CO2 VBG O2 Saturation VBG Base Excess Sodium Potassium Chloride Carbon Dioxide Anion Gap BUN Creatinine Estimated GFR/1.73 m2 Glucose Calcium Magnesium Total Bilirubin Conjugated Bilirubin AST ALT Alkaline Phosphatase Troponin I Cancelled Total Protein Albumin TSH Urine Color Urine Clarity Urine pH Ur Specific [place] Urine Protein Urine Ketones Urine Blood Urine Nitrite Urine Bilirubin Urine Urobilinogen Ur Leukocyte Esterase Urine RBC Urine WBC Ur Epithelial Cells Urine Crystals Urine Bacteria Urine Casts Urine Mucus Ur Culture Indicated? Urine Glucose Ethyl Alcohol COVID-19 Source SARS-CoV-2 (PCR)
[2021-06-20] VITALS (79 sets, daily range): BP systolic 104–173; BP diastolic 42–92; PULSE 57–89; RESP 13–27; TEMP 36.3–36.9; O2SAT 90–98
[2021-06-20 07:17] LABS: Abs Immature Grans 0.07 10^3/uL (0.0-0.06); Absolute Basophil Count 0.04 10^3/uL (0.0-0.2); Absolute Eosinophil Count 0.16 10^3/uL (0.0-0.7); Absolute Lymphocyte Count 1.67 10^3/uL (1.2-3.4); Absolute Monocyte Count 0.61 10^3/uL (0.1-0.8); Absolute Neutrophil Count 4.83 10^3/uL (1.2-6.7); Basophils % 0.5; Eosinophils % 2.2; HCT 46.4 % (40.0-50.0); HGB 15.5 g/dL (13.5-17.5); Immature Grans % 0.9; Lymphocytes % 22.6; MCH 28.5 pg (27.0-33.0); MCHC 33.4 % (32.0-36.0); MCV 85.3 fL (80-95); MPV 10.9 fL (8.0-11.0); Monocytes % 8.3; Neutrophils % 65.5; Nucleated RBC 0 %; Platelet Count 174 10^3/uL (130-400); RBC 5.44 10^6/uL (4.36-5.78); RDW 13.1 % (11.8-14.1); WBC 7.38 10^3/uL (4.4-10.8)
[2021-06-20 07:28] LABS: Anion Gap 4.5 mmol/L (3-11); BUN 23 mg/dL (7-18); CO2 30.5 mmol/L (21.0-32.0); Calcium 8.7 mg/dL (8.5-10.1); Chloride 102 mmol/L (98-107); Glucose 341 mg/dL (74-106); Magnesium 2.1 mg/dL (1.8-2.4); Potassium 4.7 mmol/L (3.5-5.1); Sodium 137 mmol/L (136-145)
--- NOTE | 2021-06-20 08:09 | W.PM.PROGNOT ---
Date of Service Date of service: 06/20/21 Time of Service: 10:45 Assessment and Plan Assessment and plan (1) Cerebral hemorrhage: Status: Acute Assessment and plan: Cause unclear. No evidence of malignancy per MRI. Repeating CT w/o contrast this am to assess progress of tumor. Continue blood pressure control with lisinopril. Would prefer to keep in ICU, though has not required nicardepene gtt. Target SBP<=140. Avoid chemical DVT ppx, NSAIDs. (2) Episode of shaking: Status: Resolved Assessment and plan: Discussed with Dr Eller - she feels the cause was likely metabolic and not related to the bleed.. PT c/s if CT head stable. (3) Diabetes mellitus: Status: Chronic Assessment and plan: A1C 11.0. Noncompliant with medications as outpatient, though we are finding out that the patient does not have insurance. Care management was made aware and we will see if he can get his medications filled through the community pharmacy. Add long acting insulin and carb coverage. Consulted diabetes education. (4) Hypoxia: Status: Chronic Assessment and plan: CXR negative. I suspect that this is actually chronic. Will evaluate with exercise oximetry on d/c. COVID-19 ruled out. (5) Hypertension: Status: Chronic Assessment and plan: Continue lisinopril initiated by Dr Willie jon gtt if BP>=140. (6) Obesity (BMI 30-39.9): Status: Chronic Assessment and plan: At high risk for KOLBY/OHS. Will need an outpatient referral for a sleep study. (7) DVT prophylaxis: Status: Acute Assessment and plan: SCDs. Chemical DVT ppx is contraindicated in setting of brain bleed. (8) Discharge planning issues: Status: Acute Assessment and plan: Keep in ICU Total Critical Care Time 30 minutes. Patient's Rachel: [phone]. Subjective Subjective Interval history since last seen: Mr Duran c/o R shoulder pain. Agreed to take tylenol this am. Otherwise, reports no dizziness, shaking, chest pain, shortness of breath, or nausea. No need for nicardepene overnight. 1L of O2. No shaking since 10 am yesterday morning. Exam Narrative Exam Narrative: General: Pleasant obese middle-aged male, 1L of O2 by NC (92%), standing up in the room when I came to see him - not shaking. No focal deficits, A&Ox3 HEENT: EOMI, MMM Heart: RRR, no m/r/g Lungs: CTAB Abdomen: soft, nontender, nondistended Extremities: +1 edema at B ankles, 5/5 strength throughout. Objective Last Vital Signs Temp 36.4 C L 06/20/21 07:23 Pulse 67 06/20/21 07:12 Resp 24 06/20/21 07:12 BP 128/64 06/20/21 07:12 Pulse Ox 94 06/20/21 07:12 Laboratory Results - last 24 hr 06/20/21 06/20/21 06/20/21 06:49 06:49 06:49 WBC 7.38 RBC 5.44 Hgb 15.5 Hct 46.4 MCV 85.3 MCH 28.5 MCHC 33.4 RDW 13.1 Plt Count 174 MPV 10.9 Immature Gran % 0.9 Neutrophils % 65.5 Lymphocytes % 22.6 Monocytes % 8.3 Eosinophils % 2.2 Basophils % 0.5 Nucleated RBC % 0 Absolute Neutrophils 4.83 Absolute Lymphocytes 1.67 Absolute Monocytes 0.61 Absolute Eosinophils 0.16 Absolute Basophils 0.04 Sodium 137 Potassium 4.7 Chloride 102 Carbon Dioxide 30.5 Anion Gap 4.5 BUN 23 H Creatinine 1.0 Estimated GFR/1.73 m2 >= 60.00 Glucose 341 H Hemoglobin A1c 11.0 H Calcium 8.7 Magnesium 2.1
[2021-06-20] MEDS: Insulin Glargine 300 UNITS/3 ML PEN 15 UNITS SC (08:46)
[2021-06-20] MEDS: Insulin Aspart 300 UNITS/3 ML PEN SC ×6 (08:46→21:42)
[2021-06-20] MEDS: Lisinopril 5 MG TAB PO (08:54)
--- NOTE | 2021-06-20 11:00 | DI.CT_ITS ---
Exam(s) CT HEAD WO EXAM: CT HEAD WO CLINICAL HISTORY: cerebral hemorrhage follow up. TECHNIQUE: Imaging Protocol: Axial computed tomography images with coronal and sagittal reformatted images were created and reviewed COMPARISON: CT CT HEAD WO from 06/19/2021 FINDINGS: There are no skull fractures nor fluid in the visualized paranasal sinuses. Right frontal scalp lip louis is again noted. There is essentially no change from yesterday. Previously described hyperdense focus in the white ma tter just anterior to the frontal horn right lateral ventricle is unchanged. Not larger nor smaller. This is either small hemorrhage or hyperdense lesion) there are no other additional similar finding s in the brain nor within the ventricular system. Both vertebral arteries are again noted be calcified at the skull base as are the intracavernous inte rnal carotid arteries. There are no new intraorbital findings. IMPRESSION: No unchanged compared to 06/19/2020 (yesterday). RADIATION DOSE DELIVERED: 808.99mGy.cm Total DLP DATA REPOSITORY: All CT scans at this facility are submitted to the National Radiology Data Registry (NRDR) Dose Index Registry (DIR) with the [employer] (ACR). RADIATION OPTIMIZATION: All CT scans at this facility use at least one of these dose optimization te chniques: automated exposure control; mA and/or kV adjustment per patient size (includes targeted exa ms where dose is matched to clinical indication); or iterative reconstruction.
--- NOTE | 2021-06-20 15:49 | W.PM.PROGNOT ---
Date of Service Date of service: 06/20/21 Time of Service: 15:49 Assessment and Plan Assessment and plan (1) Hemorrhagic stroke: Status: Acute (2) Episode of shaking: Status: Resolved Assessment and plan: #1. Hemorrhagic stroke. This appears to be an incidental finding. It is in an odd location. No evidence of aneurysm. Likely due to long-standing hypertension. Goal SBP <140. #2. Shaking episodes. ?Toxic-metabolic? Myoclonus? 2/2 hypoxia? They don't sound like seizure. Not consistent with orthostatic tremor. These seemed to have resolved. Please call if they recur. He should follow-up in neurology in 4-6 weeks. Please call with any further concerns or questions. Subjective Subjective Interval history since last seen: Mr. Duran is doing well. Repeat CTH this am with stable/resolving hemorrhage - I reviewed the images personally and with him and his . He has had no recurrence of shaking events since 10am yesterday. TTE performed today and overall normal. BPs have been ~140 on lisinopril 5mg. Complicated by shoulder pain, improved with APAP. Exam Narrative Exam Narrative: Physical Exam: Constitutional: Patient of apparent stated age, well nourished, well developed, no acute distress Neuro: MS/Language/Speech: Alert, oriented, clear language (fluency and comprehension), no dysarthria Objective Last Vital Signs Temp 97.5 F L 06/20/21 13:30 Pulse 76 06/20/21 13:32 Resp 17 06/20/21 13:32 BP 104/58 L 06/20/21 13:32 Pulse Ox 94 06/20/21 13:32 Laboratory Results - last 24 hr 06/20/21 06/20/21 06/20/21 06:49 06:49 06:49 WBC 7.38 RBC 5.44 Hgb 15.5 Hct 46.4 MCV 85.3 MCH 28.5 MCHC 33.4 RDW 13.1 Plt Count 174 MPV 10.9 Immature Gran % 0.9 Neutrophils % 65.5 Lymphocytes % 22.6 Monocytes % 8.3 Eosinophils % 2.2 Basophils % 0.5 Nucleated RBC % 0 Absolute Neutrophils 4.83 Absolute Lymphocytes 1.67 Absolute Monocytes 0.61 Absolute Eosinophils 0.16 Absolute Basophils 0.04 Sodium 137 Potassium 4.7 Chloride 102 Carbon Dioxide 30.5 Anion Gap 4.5 BUN 23 H Creatinine 1.0 Estimated GFR/1.73 m2 >= 60.00 Glucose 341 H Hemoglobin A1c 11.0 H Calcium 8.7 Magnesium 2.1
[2021-06-20] MEDS: Acetaminophen 325 MG TAB 650 MG PO (16:33)
--- NOTE | 2021-06-20 17:41 | PDOC.CMPRO ---
- If Service Date Differs Date of service: 06/20/21 Time of Service: 17:41 Care Management Progress Note S/O: Gerardo is sitting on the side of the bed when CM comes to see him. His is present in the room. He tells CM that his brain bleed is not worsening and says he is ready to go home. CM broaches his insurance status again. We discuss that he may need home oxygen, in addition to starting on a long acting insulin. His states she gets her own insulin through the [facility] and it costs her approximately $40.00 for a three months supply. Patient adds if he does need home O2, he will get it from [facility] and will pay out of pocket for it. A: Gerardo is a 66 year old male admitted to [facility] on 06/19/21 for a shaking spell, brain hemorrhage, and DM. P: Gerardo will likely be discharged home on new home O2 and insulin when medically cleared by provider. RT is following and will determine home O2 requirements. Gerardo will follow up with his PCP, neurology, and discharge plan of care as directed. His , Rachel, will drive him home via private vehicle when ready. CM will continue to support patient, his family, and any discharge planning needs.
[2021-06-21] VITALS (9 sets, daily range): BP systolic 128–156; BP diastolic 66–82; PULSE 64–100; RESP 16–23; TEMP 36.4–36.9; O2SAT 90–96
[2021-06-21] MEDS: Acetaminophen 325 MG TAB 650 MG PO ×2 (04:47→10:12)
[2021-06-21 07:09] LABS: Abs Immature Grans 0.08 10^3/uL (0.0-0.06); Absolute Basophil Count 0.05 10^3/uL (0.0-0.2); Absolute Eosinophil Count 0.14 10^3/uL (0.0-0.7); Absolute Lymphocyte Count 1.53 10^3/uL (1.2-3.4); Absolute Monocyte Count 0.57 10^3/uL (0.1-0.8); Absolute Neutrophil Count 5.21 10^3/uL (1.2-6.7); Basophils % 0.7; Eosinophils % 1.8; HCT 44.1 % (40.0-50.0); HGB 14.8 g/dL (13.5-17.5); Immature Grans % 1.1; Lymphocytes % 20.2; MCH 28.8 pg (27.0-33.0); MCHC 33.6 % (32.0-36.0); MPV 10.7 fL (8.0-11.0); Monocytes % 7.5; Neutrophils % 68.7; Nucleated RBC 0 %; Platelet Count 161 10^3/uL (130-400); RBC 5.13 10^6/uL (4.36-5.78); RDW 12.8 % (11.8-14.1); WBC 7.58 10^3/uL (4.4-10.8)
[2021-06-21 07:35] LABS: Anion Gap 5.2 mmol/L (3-11); BUN 23 mg/dL (7-18); CO2 29.8 mmol/L (21.0-32.0); CREATININE 0.9 mg/dL (0.70-1.30); Calcium 8.4 mg/dL (8.5-10.1); Chloride 101 mmol/L (98-107); Glucose 307 mg/dL (74-106); Magnesium 1.8 mg/dL (1.8-2.4); Potassium 4.9 mmol/L (3.5-5.1); Sodium 136 mmol/L (136-145)
[2021-06-21] MEDS: Normal Saline Flush 10 ML SYR IVP (08:00)
[2021-06-21] MEDS: Lisinopril 5 MG TAB PO ×2 (08:01→10:15)
[2021-06-21] MEDS: Insulin Aspart 300 UNITS/3 ML PEN SC ×4 (08:16→12:12)
[2021-06-21] MEDS: Insulin Glargine 300 UNITS/3 ML PEN 20 UNITS SC (10:15)
--- NOTE | 2021-06-21 11:40 | PT.INIE ---
Date of service: 06/21/21 Time of Service: 11:40 PT Notes Visit Reasons: Shaking Spell,Brain Hemorrhage,DM Physical Therapy Inpatient Initial Evaluation Date: 06/21/2021 Referring Doctor: Liz Freeman MD PT Orders: PT CONSULT: Limited ability Precautions: Fall. Standard. Activity as tolerated. Patient Profile/Admitting Diagnosis: Gerardo is a 66-year-old male who presented to the ED on 06/19/2021 due to lightheadedness and involuntary shaking that happened 5 times in transit to the hospital and twice at the ED. He fell once during one of these shaking episodes at home. Patient is diagnosed with frontal lobe hemorrhage, hypertension, diabetes mellitus. PMHX: Lung Cancer Social History/Home Situation: Lives with in a private home with 2 steps to enter without rails. Ther is another flight of steps to the basement of the house with one rail. Independent with all aspects of ADLs without an assistive ambulatory device. No falls in the past year. Equipment Owned/DME: None Subjective: Gerardo states that he has not had something like this happen before and he hopes that it can be managed before he goes home. Reports chronic shoulder pain in he right preventing him to fully use this arm in all ADLs. States that he did not hurt his R shoulder when he fell. Objective: General Observation: Seated on chair. In NAD. Psoriatic skin lesions in B UE/LE. No obvious injuires were sustained from the fall. Mental Status: Alert and oriented as to person, place, time, and purpose. Able to pay attention, focus, and respond appropriately. Pain: 6-7/10 in the R shoulder and arm. Vital Signs: In 1 L of oxygen per minute. ROM: Right Upper Extremity: Shoulder Flexion up to 20 degrees only. Shoulder abduction up to 5 degrees only. Elbow flexion WFL. Wrist flexion WFL. Functional opening and closing of hand WFL. Left Upper Extremity: Shoulder Flexion WFL. Shoulder abduction WFL. Elbow flexion WFL. Wrist flexion WFL. Functional opening and closing of hand WFL. Right Lower Extremity: Hip flexion WFL. Hip abduction WFL. Knee flexion WFL. Ankle dorsiflexion WFL. Ankle plantarflexion WFL. Left Lower Extremity: Hip flexion WFL. Hip abduction WFL. Knee flexion WFL. Ankle dorsiflexion WFL. Ankle plantarflexion WFL. Strength: Right Upper Extremity: Shoulder flexors 3-/5. Shoulder abductors 3-/5. Elbow flexors 4/5. Elbow extensors 4/5. Meter And Service Line Inspector strong. Left Upper Extremity: Shoulder flexors 5/5. Shoulder abductors 5/5. Elbow flexors 5/5. Elbow extensors 5/5. Meter And Service Line Inspector strong. Right Lower Extremity: Hip flexors 5/5. Hip abductors 5/5. Knee flexors 5/5. Knee extensors 5/5. Ankle dorsiflexors 5/5. Ankle plantarflexors 5/5. Left Lower Extremity: Hip flexors 5/5. Hip abductors 5/5. Knee flexors 5/5. Knee extensors 5/5. Ankle dorsiflexors 5/5. Ankle plantarflexors 5/5. Bed Mobility/Transfers: Rolling independent Supine to sit independent Sit to supine independent Sit to stand independent Stand to sit independent Gait: Instructed patient with level surface ambulation of 220 feet requiring supervision assist. No gait abnormality observed. Did report some minimal 1 soreness on the R knee as he thinks he may have hurt it during the fall. Balance: Static Sitting: Normal Dynamic Sitting: No goodrmal Static Standing: Normal Dynamic Standing: Special Tests: Mobility Limitations Standardized Measure [facility] 6 clicks Basic Mobility Inpatient Short Form: Raw Score: 24 CMS Score: 0% deficit Rapid Alternating movement: Intact 4-stage Balance Test: Able to maintain all 4 positions: feet together, semi-tandem, full tande notm, and one-legged stance for 10 seconds Informed Consent/Education: Patient was instructed in purpose of PT consult and plan of care. Agreeable to proceed with established PT POC to achieve personal goals. Assessment: No episodes of tremors throughout session. Strength symmetric in BUE/LE. No motor planning issues observe. No tremors observed throughout. Chronic right shoulder pain limiting full movement on the R but is able to use L UE for all functional tasks. May benefit from OP PT services to provide rehabilitation to R shoulder. Patient presents with clinical signs and symptoms consistent with current/admitting diagnoses that have resulted to mobility limitations, gait instability, generalized weakness, and overall ADL decline as demonstrated by the following impairment level findings: 1. Decreased strength to R shoulder major muscle groups due to pain 2. 6-7/10 pain in R shoulder Impairments are contributing to the following functional limitations: 1. Limited ability to fully use R shoulder Patient is [place] 21844 moderate complexity based on the following: History: 66-year-old male with past medical history as indicated above Examination: Demonstrable impairment in strength, balance, and mobility level with underlying impairments and functional limitations as exhibited above as well as deficit score of 0% utilizing the [facility] Mobility Inpatient Short Form Presentation: Evolving Decision Makin moderate complexity Goals: N/A. PT evaluation only. Plan of Care/Treatment Plan: N/A. PT evaluation only. DISCHARGE RECOMMENDATIONS: OP PT services to provide needed rehabilitation for R shoulder pain. TREATMENT CODE/TIME: 30121 x 28 minutes beginning at 11:40 AM. Thank you for the opportunity to participate in the care of this patient. Misty Rosales PT, DPT, CLT [facility] [place], [place]
--- NOTE | 2021-06-21 13:47 | W.PM.DS.N ---
Date of service: 06/21/21 Time of Service: 16:03 DS: Diagnosis Discharge Diagnosis (1) Hemorrhagic stroke: Status: Acute (2) Episode of shaking: Status: Resolved (3) Hypertension: Status: Chronic (4) Diabetes mellitus: Status: Chronic (5) Hypoxia: Status: Resolved (6) Obesity (BMI 30-39.9): Status: Chronic (7) COPD (chronic obstructive pulmonary disease): Status: Chronic (8) COVID-19 ruled out by laboratory testing: Status: Ruled-out Discharge Plan Disposition Patient Disposition: HOME Condition: Stable Discharge Details Reason For Visit: Shaking Spell,Brain Hemorrhage,DM Admit Date/Time: 06/19/21 14:10 Admit Provider: Cristofer Tapia Attending Provider: Liz Freeman Primary Care Provider: Pj Hennessy [facility] Course Hospital Course: Mr Duran is a 66 year old male with PMHx of lung cancer in remission, DM2, HTN, hyperlipidemia, obesity with BMI of 37.9 [address] to [facility] hospitalist service on 06/19/21 for an acute brain hemorrhage incidentally found on brain imaging when the patient presented to [facility] ED with a shaking episode and inability to walk when he had gotten up to the bathroom. MRI brain w/w/o contrast revealed that this was not a bleeding metastatic lesion and there was no evidence of an aneurysm. He was evaluated by Dr Eller, who felt the stroke was likely due to long-standing hypertension. Repeat CT head done 24 hrs later was negative for expansion of the hemorrhage. The patient was monitored in the ICU x 24 hrs to ensure that his SBP stayed below 140. This was achieved by initiation of lisinopril. He is being discharged home today on lisinopril 10 mg PO daily. Additionally, his A1C was 11.0. The patient was not on medical therapy for his diabetes prior to coming to the hospital. We initiated basal bolus insulin. The patient is being instructed to keep a log of his blood sugars and bring it to his next PCP appointment. His insulin should be affordable if filled at a community pharmacy with which his primary care practice is affiliated. He met with a medical educator. A referral for outpatient diabetes education was sent. Finally, during his admission, he did briefly require 1L of O2, and his hypoxia happened primarily at night. He does not qualify for Oxygen on exercise oxymetry, but he would benefit from an outpatient sleep study to ensure that he does not have KOLBY. The patient is medically stable for discharge home today. He will need follow up with his PCP in 1-[address] Eller in 4-6 weeks. Care for patient as well as completion of his discharge summary on day of discharge took 45 minutes. Home Meds and New Rx's Prescriptions: New Acetaminophen [Tylenol] 650 mg PO Q6H PRN PRNQty: 0 RF: 0 lisinopril 5 mg Tablet 10 mg PO DAILY Qty: 30 RF: 0 Lantus Solostar U-100 Insulin 100 unit/mL (3 mL) Insulin Pen 25 unit subcut DAILY Qty: 15 RF: 0 insulin aspart U-100 [Novolog Flexpen U-100 Insulin] 100 unit/mL (3 mL) Insulin Pen 5 unit subcut AC Qty: 15 RF: 0 (DME) pen needle, diabetic [Pen Needle] 31 gauge x 5/16 needle See Rx Instructions .ROUTE .MEDSUPPLY Qty: 1200 RF: 0 Discharge Instructions Instructions: Lisinopril (By mouth), Insulin Aspart, Recombinant (By injection), Insulin Glargine (By injection), Hypoglycemia in a Person with Diabetes (DC), Meal Planning with Diabetes Exchanges (DC), Intracerebral Hemorrhage (DC), Chronic Hypertension (DC), Low-Sodium Diet (DC) Additional Instructions: Return to the hospital with any fever, bleeding, chest pain, shortness of breath, or any new neurologic deficits. Check your blood sugar first thing in the morning (before eating and drinking), before lunch, dinner, and at bedtime. Keep a log of your blood sugars and show to your PCP. Know signs and symptoms of hypoglycemia and always have something sweet with you. As far as blood sugar meter/strips, the cheapest and very reliable meter/strips can be found at [facility]. The pharmacist will help you find a matching meter and strips as well as a lancet. Follow up with your PCP in 1-2 weeks. Follow up with Dr Eller of neurology in 4-6 weeks. Follow up with DM education. Stand Alone Forms: Nursing Discharge Form Referrals: Keke Roach [RELIEF SALESPERSON] - Pj Hennessy [Primary Care Provider] - 06/28/21 11:30 am (Appointment with Mena.) Gracy Eller MD [ [facility] STAFF PHYSICIAN] - 08/14/21 1:15 pm Activity:: Activity as Tolerated Equipment/Supplies:: No Equipment Needed Diet:: carb consistent low sodium Discharge Orders Discharge Orders: Discharge Order (Routine); Ordered 06/21/21 Ordered By: Liz Freeman Discharge Data Discharge Date/Time-TO BE ENTERED AT DEPARTURE: 06/21/21 15:35 DS: Summary Time Spent with Patient providing and/or coordinating discharge services: Greater than 30 minutes Status at Discharge Functional status at discharge: independent ambulation Overall status at discharge: patient is back to baseline Mental Status: mental status grossly normal Speech and Movement: speech and movement normal Mood: congruent mood Affect: normal affect Exam Narrative Exam Narrative: General: Pleasant obese middle-aged male, sitting in a chair, on room air HEENT: EOMI, MMM Heart: RRR, no m/r/g Lungs: CTAB Abdomen: soft, nontender, nondistended Extremities: trace edema at B ankles, 5/5 strength throughout. Psych Mental Status: mental status grossly normal Speech and Movement: speech and movement normal Mood: congruent mood Affect: normal affect DS: Data Vitals/I&O Vitals and I&O: Vital Signs Temperature 36.5 C 06/21/21 12:21 Temperature Source Tympanic 06/21/21 12:21 Pulse 82 06/21/21 12:21 Pulse Rhythm Regular 06/21/21 11:17 Pulse 81 06/20/21 21:00 Respiratory Rate 18 06/21/21 12:21 Respiratory Effort Non-Labored 06/21/21 11:17 Respiratory Depth Normal 06/21/21 11:17 Respiratory Pattern Normal 06/21/21 11:17 Blood Pressure 136/78 06/21/21 12:21 Blood Pressure Mean 76 06/20/21 20:01 Blood Pressure Position Supine 06/20/21 13:30 Pulse Oximetry 96 06/21/21 12:21 Oxygen Delivery Method Room Air 06/21/21 06:25 Oxygen Flow Rate 0 06/21/21 06:25 Pain Level 0 06/21/21 12:21 Comment 06/21/21 03:20 Intake & Output 06/20/21 06/21/21 06/21/21 23:59 11:59 23:59 Intake Total 250.833 / 490.833 Output Total 500 / 1025 Balance -249.167 / -534.167 Weight 116.4 kg Intake: IV 0.833 / 0.833 Oral 250 / 490 Output: Urine 500 / 1025 Other: Urine Color Yellow Yellow Urine Appearance Clear Clear Urine Odor Normal Comment Urine mixed in with stool in commode. Stool Occult Blood Negative Stool Size Large Small Stool Characteristics Soft Formed Formed Brown Brown Voiding Methods Bedside Commode Bedside Commode Data Completed and Pending Completed studies during hospitalization [Text1]: CT head w/o contrast 06/19/21: Small focus of high attenuation adjacent to the right lateral ventricle could represent a small hemorrhagic focus or other hemorrhagic lesion. CT head w/o contrast 06/20/21: No unchanged compared to 06/19/2020 (yesterday). Brain MRI 06/19/21: 5 millimeter hemorrhagic focus right frontal lobe anterior to right lateral ventricle. No surrounding edema. No evidence of mass. Brain MRI/MRA: 06/19/21: Normal MRA examination of the [place]. MRA neck: Normal MRA of the neck. CXR: No acute abnormality. Echo: LV size and wall thickness nml. No LV segmental wall motion abnormalities. EF of 65%. RV chamber size, wall thickness, systolic function. Labs on day of discharge: Labs from last 24 hours 06/21/21 06/21/21 06:50 06:50 WBC 7.58 RBC 5.13 Hgb 14.8 Hct 44.1 MCV 86.0 MCH 28.8 MCHC 33.6 RDW 12.8 Plt Count 161 MPV 10.7 Immature Gran % 1.1 Neutrophils % 68.7 Lymphocytes % 20.2 Monocytes % 7.5 Eosinophils % 1.8 Basophils % 0.7 Nucleated RBC % 0 Absolute Neutrophils 5.21 Absolute Lymphocytes 1.53 Absolute Monocytes 0.57 Absolute Eosinophils 0.14 Absolute Basophils 0.05 Sodium 136 Potassium 4.9 Chloride 101 Carbon Dioxide 29.8 Anion Gap 5.2 BUN 23 H Creatinine 0.9 Estimated GFR/1.73 m2 >= 60.00 Glucose 307 H Calcium 8.4 L Magnesium 1.8 [facility] Medical History (Updated 06/21/21 @ 13:48 by Liz Freeman MD) Chronic cough COPD (chronic obstructive pulmonary disease) Diabetes mellitus Hyperlipidemia Hypertension Lung cancer Psoriasis Social History Smoking/Tobacco Use Status: Former Tobacco Use Smoking risk assessment performed?: Yes Alcohol Intake: never Drug use: Never Do you feel safe at home: Yes Do you feel safe in your relationship?: Yes
--- NOTE | 2021-06-21 15:08 | W.INDIABCONS ---
Date of service: 06/21/21 Time of Service: 15:08 Diabetes Inpatient Consult DESCRIPTION/ASSESSMENT: 66yo male admitted with shaking spell, hemorrhagic stroke. PMH significant for DMII, HTN, obesity, DVT prophylaxis. Meds: insulin aspart sensitive protocol plus 1 unit per 15g CHO prandially and 20 units lantus HS, Lisinopril. A1C was 11.0 yesterday. Pt states this hospitalization was the first time he found he has diabetes. Reports his has managed DMII for some time now and can use her as a resource ? I offered nutrition ed, training on insulin pen administration, and referral to CC program. Is interested in having a continuous glucose monitor and follow up in outpatient setting. BMI of 38.3 Kg/m2 c/2 stage II obesity. Diagnosis: Stage II obesity AEB current BMI 35-39.9. Poorly controlled DMII AEB diet history (skipping most meals and eating 1 large dinner and snacks) as well as recent A1C of 11.0%. Intervention: Placed Dexcom 6 continuous glucose monitor and synced with smart phone. Is agreeable for remote monitoring. Provided education on discharge insulin recommendations- will get 5 days worth of insulin. Referred to free mail order pharmacy to provide insulin by early next week. Provided basic diabetes meal recommendations. Monitoring/Evaluation: Will call tomorrow at home to assess blood sugars and answer questions. Will make appointment in next 7 days for outpatient nutrition education and CGM down load. Will follow up with PCP in OP setting. 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
--- NOTE | 2021-06-21 19:06 | CMDISCH_ITS ---
- If Service Date Differs Date of service: 06/21/21 Time of Service: 19:06 LACE Index Scoring Tool - Questions: Length of Stay (in days): 2 Acuity (Admit via E.D.?): Yes Comorbidities: Diabetes w/o Complication, Chronic Pulmonary Disease E.D. Visits: 1 - Answers: Total Score: 9 Risk of Readmission: Low Risk Care Management Discharge Reason for Hospitalization: Shaking spell, brain hemorrhage. Discharge Plan: Gerardo will return home today with no new services. His was present for his discharge, and drove him home via private vehicle. CM sent his prescriptions to his PCP, so that they could resend them to the [facility] pharmacy. CM asked diabetic education to meet with him prior to his discharge for alternate medication while he waits for the medication to be mailed to him. MD asked pharmacy to dispense a few days worth of medication. He has a follow up appointment on 06/28/21 at his PCP office at 11:30am. He will follow up with his discharge plan of care. He is happy to be going home. Patient/Family Education Needs: Review discharge instructions regarding activity levels and medications, discussion of self care needs including ask me three.
== END 2021-06-21 15:35 | disposition home or self-care (01) | DRG 66 ==
LOC: ER 06:25 → ICU 07:22 → MS 06-20 21:04
PROVIDERS: Admitting Provider General Practice; Emergency Provider Emergency Medicine; PCP Internal Medicine; Visit Provider Internal Medicine
DX: I61.8 Other nontraumatic intracerebral hemorrhage (principal); R25.1 Tremor, unspecified; E11.65 Type 2 diabetes mellitus with hyperglycemia; I10 Essential (primary) hypertension; Z87.891 Personal history of nicotine dependence; Z20.822 Contact with and (suspected) exposure to COVID-19; R09.02 Hypoxemia; E66.9 Obesity, unspecified; Z68.37 Body mass index [BMI] 37.0-37.9, adult; J41.0 Simple chronic bronchitis; Z91.120 Patient's intentional underdosing of medication regimen due to financial hardship; E78.5 Hyperlipidemia, unspecified; Z85.118 Personal history of other malignant neoplasm of bronchus and lung
CPT/HCPCS: 36415; 70544; 70547; 70553; 80048; 80053; 82805; 85027; 87635; 93005; 94618; 96372; 97162; 99223; 99233; 99285; 70450; 71046; 80320; 81003; 81015; 82248; 83036; 83735; 84443; 84484; 85025; 85610; 85730; 93010; 93306; 99219; 99239; 99291; J3490

== ENCOUNTER 2022-08-20 18:39 | Outpatient (REF) | payer SELFPAY ==
[2022-08-20 18:54] LABS: Anion Gap 5.1 mmol/L (3-11); BUN 27 mg/dL (7-18); CO2 30.9 mmol/L (21.0-32.0); CREATININE 1.1 mg/dL (0.70-1.30); Calcium 9.1 mg/dL (8.5-10.1); Chloride 102 mmol/L (98-107); Estimated GFR 72.67 (mL/min/1.73m2); Glucose 122 mg/dL (74-106); NT-proBNP 73 pg/mL (<300); Potassium 4.6 mmol/L (3.5-5.1); Sodium 138 mmol/L (136-145)
== END 2022-08-20 18:40 | disposition home or self-care (01) ==
LOC: NCHCN 18:39
PROVIDERS: PCP Internal Medicine; Visit Provider Nurse Practitioner Family
DX: R06.02 Shortness of breath (principal)
CPT/HCPCS: 80048; 83880

== ENCOUNTER 2023-05-30 18:42 | Emergency (ER) | payer SELFPAY ==
[2023-05-30] VITALS (36 sets, daily range): BP systolic 127–186; BP diastolic 34–79; PULSE 61–79; RESP 13–25; TEMP 36.8; O2SAT 86–96
--- NOTE | 2023-05-30 18:45 | DI.CT_ITS ---
Exam(s) CT HEAD CERVICAL SPINE WO EXAM: CT HEAD CERVICAL SPINE WO CLINICAL HISTORY: fall, hit head, on lovenox, hx of stroke. TECHNIQUE: Imaging Protocol: Axial computed tomography images with coronal and sagittal reformatted images were created and reviewed COMPARISON: CT CT HEAD WO from 06/20/2021 FINDINGS: Patient motion artifact. CT Head: Ventricles and Extra axial spaces: Normal in size and morphology for the patient's age. Hemorrhage: Please see below under cerebral parenchyma. Cerebral parenchyma: There is an old right MCA distribution infarct. There are so seated areas of hy perdensity in the posterior aspect of the infarct. There is a stable hyperdense area adjacent to the frontal horn of the right lateral ventricle which was present on the prior examination from 06/20/20 21. There are areas of decreased attenuation in the white matter consistent with small vessel ischemi c disease. There is an old right thalamic lacunar infarct. Midline shift: None. Brainstem/Cerebellum: Normal. Calvarium: Normal. Visualized Paranasal sinuses/Mastoids: Clear. Soft Tissues: There is a subcutaneous lipoma overlying the right frontal bone. CT Cervical Spine: Bones: No acute fracture or subluxation. Degenerative changes are seen in the cervical spine. There is straightening of the normal cervical lordosis. This may be due to patient positioning or muscle s pasm. Soft Tissues: Unremarkable. Lung Apices: Clear. IMPRESSION: 1. [place] area of hyperdensity in the posterior aspect of the chronic right MCA distribution infa rct. This may represent area of parenchymal hemorrhage. Laminar necrosis cannot be excluded. 2. No acute fracture or subluxation in the cervical spine. RADIATION DOSE DELIVERED: 1,354.39mGy.cm Total DLP DATA REPOSITORY: All CT scans at this facility are submitted to the National Radiology Data Registry (NRDR) Dose Index Registry (DIR) with the [employer] (ACR). RADIATION OPTIMIZATION: All CT scans at this facility use at least one of these dose optimization te chniques: automated exposure control; mA and/or kV adjustment per patient size (includes targeted exa ms where dose is matched to clinical indication); or iterative reconstruction.
--- NOTE | 2023-05-30 18:45 | RT.EKG_ITS ---
APPROVED REPORT Exam: Resting ECG Reason for Exam: left shoulder pain Patient Location: E HR:70 bpm ECG Measurements Heart Rate 70 AXIS FL 250 P -90 QRSd 101 QRS 223 QT 386 T -58 QTc 417 Conclusion Sinus or ectopic atrial rhythm...P axis (-45,135) Prolonged FL interval...FL >220, V-rate 50- 90 Markedly posterior QRS axis...late V-lead transition Nonspecific T abnormalities, inferior leads...T <-0.10mV, II III aVF Physician: S1, Q3, T3, new compared to prior on 06/19/21 . no stemi
--- NOTE | 2023-05-30 18:49 | DI.RAD_ITS ---
Exam(s) XR SHOULDER LT COMPLETE 2+V EXAM: XR SHOULDER LT COMPLETE 2+V CLINICAL HISTORY: fall, hx of stroke, left shoulder pain. TECHNIQUE: 2D digital imaging was performed of the left shoulder. Four images were obtained. AP, G rashey, and Y views were obtained. COMPARISON: No exams were available for comparison FINDINGS: BONES: No acute fracture is present. No bony destructive lesion is seen. JOINTS: No dislocation present. There are degenerative changes seen at the acromioclavicular joint. SOFT TISSUE: Normal. IMPRESSION: No acute fracture or dislocation. DATA REPOSITORY: RADIATION DOSE DELIVERED:
--- NOTE | 2023-05-30 19:03 | W.ED.GENAD ---
Discharge Plan Discharge Details Chief Complaint: Fall/Non TraumaCriteria Clinical Impression: Cerebral hemorrhage Primary Care Provider: Pj Hennessy ED Provider: Reid Pérez Home Meds and New Rx's Prescriptions: No Action Lantus Solostar U-100 Insulin 100 unit/mL (3 mL) insulin pen 26 unit subcut DAILY lisinopril 10 mg tablet 10 mg PO DAILY Qty: 90 3RF Acetaminophen [Tylenol] 650 mg PO Q6H PRN PRNQty: 0 0RF (DME) pen needle, diabetic [Pen Needle] 31 gauge x 5/16 needle See Rx Instructions .ROUTE .MEDSUPPLY Qty: 1200 0RF Rx Instructions: for us with insulin AC and HS albuterol sulfate 2.5 mg /3 mL (0.083 %) Solution For Nebulization PRN acetaminophen 500 mg Tablet 1,000 mg PO TID baclofen 20 mg Tablet 20 mg PO .QHS aspirin 81 mg Tablet 81 mg PO DAILY gabapentin 600 mg Tablet 600 mg PO .QPM melatonin 3 mg Tablet 6 mg PO .24HR PRN lidocaine [Lidoderm] 5 % Adhesive Patch,Medicated 2 patch .QHS Rx Instructions: 2 patches lower back losartan [Cozaar] 25 mg Tablet 25 mg PO DAILY docusate sodium [Colace] 100 mg Capsule 200 mg PO DAILY colchicine (gout) 0.6 mg Tablet 0.6 mg PO DAILY fluoxetine 20 mg Capsule 20 mg PO DAILY enoxaparin 40 mg/0.4 mL Syringe 40 mg subcut DAILY nystatin 1 billion unit Powder PO Rx Instructions: 2 times a day for 14 days insulin aspart U-100 [Novolog FlexPen U-100 Insulin] 100 unit/mL (3 mL) insulin pen subcut AC Rx Instructions: sliding scale Medical Decision Making 68-year-old male who [facility] secondary to chronic left-sided deficits from his stroke, was a history of a hemorrhagic stroke 2 to 3 years ago, and an ischemic stroke within the last 2 months at [facility], COPD, but is also on subcutaneous Lovenox, previous lung cancer, high cholesterol, who presents today via EMS coming from [facility] for evaluation after fall. Patient fell out of bed, hit and landed on his left shoulder and left head. No loss of consciousness. He states that his left shoulder quan now after the fall. He states that his pain has been different ever since his stroke, and now pretty much all pain feels electrical and burning. He denies any radiation of pain to the arm head neck or chest. He does have a mild headache where his head hit though on the left head. He denies any other complaints. No other modifying factors. Exam demonstrates chronic left-sided upper and lower extremity deficits. Mild tenderness over the left humeral head. No midline cervical thoracic or lumbar spine tenderness. No evidence of significant trauma in the head and neck. There does not appear to be any acute new neuro deficits. Will get x-rays to rule out fracture, will monitor closely and reassess. 9:35 PM X-ray results of the shoulder is negative for acute process. 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 Patient looks notably clinically well, he is interactive, talkative, and does not show any change for his deficits. is at bedside. Blood pressure is stable. We did contact [facility] and discussed the case with neurosurgery Dr. Washington, she reviewed the case and images and is also concerned he may be bleeding. She does not recommend reversal of his subcu Lovenox at this time. He also does take a daily aspirin. We will obviously not be giving his nightly dose currently. She does recommend 1 g of Keppra. We will administer this. She also recommends repeat CAT scan 6 hours after initial. She also recommends reaching out to the [facility] where his more recent stroke also occurred. We will reach out to them. Repeat CAT scan will be at 2 AM. request that we call her with results or final disposition. She can be reached at [phone]. Patient will be signed out to my colleague Dr. Bae for follow-up on repeat CT imaging. We have not yet heard back from [facility] at this stage. 12 AM Discussed the case with Dr. Monroe of [facility] neurosurgery. He reviewed the images. He also thinks that it is a small bleed. He too recommends a 6-hour CT repeat. He feels that if the repeat CAT scan is stable, Lovenox can be restarted in 5 days. He recommends a third repeat CAT scan in 48 to 72 hours. He also recommends outpatient neurosurgical follow-up in the next month. Still pending repeat CAT scan. Patient will be signed out to my colleague. FINDINGS: Bones/joints: Degenerative changes of the left acromioclavicular joint. No acute fracture or dislocation. Soft tissues: Unremarkable. IMPRESSION: No acute fracture or dislocation. Thank you for allowing us to participate in the care of your patient. Dictated and Authenticated by: Bruce Troy MD 05/30/2023 8:22 PM Eastern Time ([place]) FINDINGS: Brain: Chronic unchanged hyperdense partially calcified lesion within the right frontal periventricular white matter. Chronic right frontal/opercular infarct with encephalomalacia changes. 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 Mild nonspecific hypodensities of the periventricular and deep subcortical white matter, most likely secondary to chronic microangiopathic ischemic change. No evidence of mass effect or midline shift. Dow-white matter differentiation is preserved. Cerebral ventricles: Mild prominence of the ventricles and sulci, most likely attributed to parenchymal volume loss. Paranasal sinuses: Unremarkable. No fluid levels. Mastoid air cells: Unremarkable. Bones/joints: No acute calvarial fracture. Soft tissues: Scalp soft tissues are unremarkable. IMPRESSION: 1. 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 2. Other chronic findings, as above. FINDINGS: Bones/joints: Vertebral body heights are maintained. No locked or perched facets. Multilevel facet arthropathy. No acute cervical spine fracture. The dens is intact. Atlanto-axial intervals are normal. Multilevel degenerative changes with intervertebral disc height loss and osteophyte formation, with multilevel areas of mild canal stenosis. Lungs: Lung apices are clear. Soft tissues: Unremarkable. IMPRESSION: No acute cervical spine fracture. Thank you for allowing us to participate in the care of your patient. Dictated and Authenticated by: Bruce Troy MD HPI General Date/Time Provider Initiated Documentation: 05/30/23 18:49. HPI Narrative: 68-year-old male who currently resides at [facility] secondary to chronic left-sided deficits from his stroke, was a history of a hemorrhagic stroke, COPD, but is also on subcutaneous Lovenox, previous lung cancer, high cholesterol, who presents today via EMS coming from [facility] for evaluation after fall. Patient fell out of bed, hit and landed on his left shoulder and left head. No loss of consciousness. He states that his left shoulder quan now after the fall. He states that his pain has been different ever since his stroke, and now pretty much all pain feels electrical and burning. He denies any radiation of pain to the arm head neck or chest. He does have a mild headache where his head hit though on the left head. He denies any other complaints. No other modifying factors. Related Data Home Medications Medication Instructions Recorded Confirmed Acetaminophen [Tylenol] 650 mg PO Q6H PRN PRN ##0 06/21/21 08/14/21 pen needle, diabetic 31 gauge x #1,200 ea 06/21/21 08/14/2101/07 (Pen Needle) insulin glargine 100 unit/mL (3 26 unit subcut DAILY 08/14/21 08/14/21 mL) subcutaneous pen (Lantus Solostar U-100 Insulin) lisinopril 10 mg tablet 10 mg PO DAILY #90 tabs 08/14/21 08/14/21 acetaminophen 500 mg tablet 1,000 mg PO TID 05/30/23 05/30/23 albuterol sulfate 2.5 mg/3 mL mg PRN 05/30/23 (0.083 %) solution for nebulization aspirin 81 mg tablet 81 mg PO DAILY 05/30/23 05/30/23 baclofen 20 mg tablet 20 mg PO .QHS 05/30/23 05/30/23 colchicine (gout) 0.6 mg tablet 0.6 mg PO DAILY 05/30/23 05/30/23 docusate sodium 100 mg capsule 200 mg PO DAILY 05/30/23 05/30/23 (Colace) enoxaparin 40 mg/0.4 mL 40 mg subcut DAILY 05/30/23 05/30/23 subcutaneous syringe fluoxetine 20 mg capsule 20 mg PO DAILY 05/30/23 05/30/23 gabapentin 600 mg tablet 600 mg PO .QPM 05/30/23 05/30/23 insulin aspart U-100 100 unit/mL subcut AC 05/30/23 (3 mL) subcutaneous pen (Novolog FlexPen U-100 Insulin aspart) lidocaine 5 % topical patch 2 patch .QHS 05/30/23 05/30/23 (Lidoderm) losartan 25 mg tablet (Cozaar) 25 mg PO DAILY 05/30/23 05/30/23 melatonin 3 mg tablet 6 mg PO .24HR PRN 05/30/23 05/30/23 nystatin 1 billion unit oral powder unit PO 05/30/23 Previous Rx's Medication Instructions Recorded Acetaminophen [Tylenol] 650 mg PO Q6H PRN PRN ##0 06/21/21 pen needle, diabetic 31 gauge x #1,200 ea 06/21/21 5/16 (Pen Needle) lisinopril 10 mg tablet 10 mg PO DAILY #90 tabs 08/14/21 Allergies Allergy/AdvReac Type Severity Reaction Status Date / Time No Known Allergies Allergy Unverified 05/30/23 21:10 General Stated Complaint: Fall/Non TraumaCriteria JAQUAN: 3 Review of Systems All systems reviewed & are unremarkable except as noted in HPI and below PFSH All Active Problems (Updated 05/31/23 @ 00:03 by Reid Pérez DO) COPD (chronic obstructive pulmonary disease) (Chronic) Hemorrhagic stroke (Acute) Hypertension (Chronic) Discharge planning issues (Acute) DVT prophylaxis (Acute) Obesity (BMI 30-39.9) (Chronic) Diabetes mellitus (Chronic) Cerebral hemorrhage (Acute) Medical History Chronic cough Hyperlipidemia Lung cancer Psoriasis Social History Smoking/Tobacco Use Status: Former Tobacco Use Smoking risk assessment performed?: Yes Alcohol Intake: never Drug use: Never Housing: half-way Do you feel safe at home: Yes Do you feel safe in your relationship?: Yes Exam Narrative Exam Narrative: 1.Const: Well-nourished, Well-developed, appearing stated age 2.Eyes: PERRL, no conjunctival injection, and symmetrical lids. 3.ENT: Atraumatic external nose and ears. Moist MM. Neck: Symmetric, trachea midline, No thyromegaly. There is no evidence of raccoon eyes, sprague sign, CSF rhinorrhea, mastoid tenderness, cranial crepitus, hemotympanum, exophthalmos, or hyphema. Patient demonstrates intact dentition with no signs of tooth avulsion or fracture, no signs of jaw deformity, no evidence of a LeFort's fracture, with an intact palate, nose and orbital region. There is no evidence of a nasal septal hematoma. No proptosis. Jaw closes symmetrically. Airway is clear. 4.CVS: +S1/S2, No murmurs or gallops. Peripheral pulses 2+ and equal in all extremities. Brisk capillary refill in all extremities. 5.RESP: Unlabored respiratory effort. Clear to auscultation bilaterally. No wheezes rales or rhonchi 6.GI: Soft, Nontender/Nondistended, No hepatosplenomegaly. No guarding or rebound. 7.MSK: Chronic weakness of the left upper extremity, mild chronic weakness in the left lower extremity. Normal movement of the right upper and right lower extremity. Mild tenderness over the proximal humeral head. No clavicular tenderness. No scapular tenderness. No midline cervical thoracic or lumbar spine tenderness. No tenderness on palpation of the head. No evidence of hematoma. 8.Skin: Warm, Dry. No rashes or lesions. 9.Neuro: risk lead II-XII grossly intact. Patient appears at neurologic baseline. Please refer to musculoskeletal 10.Psych: (AAO) x3. Appropriate mood and affect Course Vital Signs Vital signs: Vital Signs Temperature 36.8 C 05/30/23 18:44 Pulse 76 05/30/23 18:44 Respiratory Rate 18 05/30/23 18:44 Blood Pressure 177/59 H 05/30/23 18:44 Pulse Oximetry 95 05/30/23 18:44 Temperature 36.8 C 05/30/23 18:44 Temperature Source Oral 05/30/23 18:44 Pulse 76 05/30/23 18:44 Respiratory Rate 18 05/30/23 18:44 Respiratory Effort Normal, Non-Labored 05/30/23 18:55 Blood Pressure 177/59 H 05/30/23 18:44 Blood Pressure Position Supine 05/30/23 18:44 Pulse Oximetry 95 05/30/23 18:44 Oxygen Delivery Method Room Air 05/30/23 18:44 Oxygen Flow Rate 0 05/30/23 18:44
--- NOTE | 2023-05-30 19:58 | DI.VRAD_ITS ---
Addendum created by Bruce Troy MD on 05/30/2023 7:59:39 PM EDT: THIS REPORT CONTAINS FINDINGS THAT MAY BE CRITICAL TO PATIENT CARE. The findings were verbally communicated via telephone conference with ASIF CANDELARIO at 7:59 PM EDT on 05/30/2023. The findings were acknowledged and understood. Initial report created on 05/30/2023 7:57:56 PM EDT: PROCEDURE INFORMATION: Exam: CT Head Without Contrast Exam date and time: 05/30/2023 7:42 PM Age: 68 years old Clinical indication: Other: Fall, hit head, HX of stroke; On lovenox TECHNIQUE: Imaging protocol: Computed tomography of the head without contrast. Radiation optimization: All CT scans at this facility use at least one of these dose optimization techniques: automated exposure control; mA and/or kV adjustment per patient size (includes targeted exams where dose is matched to clinical indication); or iterative reconstruction. COMPARISON: CT HEAD WO 06/20/2021 11:01 AM FINDINGS: Brain: Chronic unchanged hyperdense partially calcified lesion within the right frontal periventricular white matter. Chronic right frontal/opercular infarct with encephalomalacia changes. 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 Mild nonspecific hypodensities of the periventricular and deep subcortical white matter, most likely secondary to chronic microangiopathic ischemic change. No evidence of mass effect or midline shift. Dow-white matter differentiation is preserved. Cerebral ventricles: Mild prominence of the ventricles and sulci, most likely attributed to parenchymal volume loss. Paranasal sinuses: Unremarkable. No fluid levels. Mastoid air cells: Unremarkable. Bones/joints: No acute calvarial fracture. Soft tissues: Scalp soft tissues are unremarkable. IMPRESSION: 1. 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 2. Other chronic findings, as above. PROCEDURE INFORMATION: Exam: CT Cervical Spine Without Contrast Exam date and time: 05/30/2023 7:42 PM Age: 68 years old Clinical indication: Other: Fall, hit head, HX of stroke; On lovenox TECHNIQUE: Imaging protocol: Computed tomography of the cervical spine without contrast. Radiation optimization: All CT scans at this facility use at least one of these dose optimization techniques: automated exposure control; mA and/or kV adjustment per patient size (includes targeted exams where dose is matched to clinical indication); or iterative reconstruction. COMPARISON: CT HEAD WO 06/20/2021 11:01 AM FINDINGS: Bones/joints: Vertebral body heights are maintained. No locked or perched facets. Multilevel facet arthropathy. No acute cervical spine fracture. The dens is intact. Atlanto-axial intervals are normal. Multilevel degenerative changes with intervertebral disc height loss and osteophyte formation, with multilevel areas of mild canal stenosis. Lungs: Lung apices are clear. Soft tissues: Unremarkable. IMPRESSION: No acute cervical spine fracture. Dictated and Authenticated by: Bruce Troy MD. Ordering:JIAN Mathews MD
--- NOTE | 2023-05-30 20:23 | DI.VRAD_ITS ---
PROCEDURE INFORMATION: Exam: XR Left Shoulder Exam date and time: 05/30/2023 8:13 PM Age: 68 years old Clinical indication: Pain; Shoulder; Left; Patient HX: Fall TECHNIQUE: Imaging protocol: Radiologic exam of the left shoulder. Views: 2 or more views. COMPARISON: CT HEAD CERVICAL SPINE WO 05/30/2023 7:42 PM FINDINGS: Bones/joints: Degenerative changes of the left acromioclavicular joint. No acute fracture or dislocation. Soft tissues: Unremarkable. IMPRESSION: No acute fracture or dislocation. Dictated and Authenticated by: Bruce Troy MD. Ordering:JIAN Mathews MD
[2023-05-30 20:54] LABS: Abs Immature Grans 0.09 10^3/uL (0.0-0.06); Absolute Basophil Count 0.05 10^3/uL (0.0-0.2); Absolute Eosinophil Count 0.11 10^3/uL (0.0-0.7); Absolute Lymphocyte Count 1.96 10^3/uL (1.2-3.4); Absolute Monocyte Count 0.66 10^3/uL (0.1-0.8); Absolute Neutrophil Count 6.46 10^3/uL (1.2-6.7); Basophils % 0.5; Eosinophils % 1.2; HCT 45.6 % (40.0-50.0); HGB 15.9 g/dL (13.5-17.5); MCH 29.2 pg (27.0-33.0); MCHC 34.9 % (32.0-36.0); MCV 84 fL (80-95); Monocytes % 7.1; Neutrophils % 69.2; Platelet Count 234 10^3/uL (130-400); RBC 5.44 10^6/uL (4.36-5.78); RDW 13.5 % (11.8-14.1); RDW-SD 41.1 fL; WBC 9.33 10^3/uL (4.4-10.8)
[2023-05-30] MEDS: levETIRAcetam 1,000 MG in Normal Saline 100 ML 400 MG IVPB (21:07)
[2023-05-30 21:10] LABS: ALT 19 U/L (16-63); AST 15 U/L (15-37); Albumin 3.3 g/dL (3.4-5.0); Alkaline Phosphatase 80 U/L (46-116); Anion Gap 9.1 mmol/L (3-11); BUN 15 mg/dL (7-18); CO2 27.9 mmol/L (21.0-32.0); CREATININE 0.8 mg/dL (0.70-1.30); Chloride 99 mmol/L (98-107); Estimated GFR 95.21 (mL/min/1.73m2); Glucose 139 mg/dL (74-106); Potassium 3.5 mmol/L (3.5-5.1); Sodium 136 mmol/L (136-145); Total Protein 7.2 g/dL (6.4-8.2)
[2023-05-30 21:17] LABS: INR 0.9 (0.9-1.1); PTT Activated 26.1 sec (21.5-31.9); Prothrombin Time 9.3 sec (9.3-11.0)
--- NOTE | 2023-05-30 22:09 | W.EDPROG ---
Date of service: 05/30/23 Time of Service: 22:09 Medical Decision Making I received signout on this 68-year-old male in the emergency department following a fall. Patient has a history reportedly 3 years ago of a hemorrhagic CVA. Several months ago he reportedly had an ischemic CVA for which he has persistent left-sided deficits and takes enoxaparin and aspirin. This evening he fell out of bed and complained of left shoulder pain. He had a CT scan concerning for the possibility of a new intracranial hemorrhage. Neurosurgery at [facility] was involved and they advised repeat CT at 2 AM along with 1 g of levetiracetam. They advised against reversal of his anticoagulation. Patient reportedly has received care at [facility] and so his original provider is reaching out to [facility] concerning the patient's case. [address] patient had a stable study. I spoke with Dr. Monroe from [facility] who reviewed the patient's CT head agreed with the stable changes. He advised restarting enoxaparin and 5 days, on 06/04/2023. He also recommended repeat CT head 48 to 72 hours. I will order repeat CT scan to be performed Friday afternoon. Will advise outpatient neurosurgical follow-up at [facility] before July 01, 2023. I called the patient's at home and updated her on plan for repeat CT, holding enoxaparin, and outpatient neurosurgical follow-up. She was appreciative of the update. Sign Out Sign Out Data: Sign Out Comment: Please follow-up on CT scan and repeat consult with neurosurgery at the [facility]. Last updated by Reid Pérez DO at 05/31/23 00:04 Discharge Plan Disposition Patient Disposition: Home Discharge Details Clinical Impression: Cerebral hemorrhage Primary Care Provider: Pj Hennessy ED Provider: Clarke Bae Home Meds and New Rx's Prescriptions: Continued Lantus Solostar U-100 Insulin 100 unit/mL (3 mL) insulin pen 26 unit subcut DAILY lisinopril 10 mg tablet 10 mg PO DAILY Qty: 90 3RF Acetaminophen [Tylenol] 650 mg PO Q6H PRN PRNQty: 0 0RF (DME) pen needle, diabetic [Pen Needle] 31 gauge x 5/16 needle See Rx Instructions .ROUTE .MEDSUPPLY Qty: 1200 0RF Rx Instructions: for us with insulin AC and HS albuterol sulfate 2.5 mg /3 mL (0.083 %) Solution For Nebulization PRN acetaminophen 500 mg Tablet 1,000 mg PO TID baclofen 20 mg Tablet 20 mg PO .QHS aspirin 81 mg Tablet 81 mg PO DAILY gabapentin 600 mg Tablet 600 mg PO .QPM melatonin 3 mg Tablet 6 mg PO .24HR PRN lidocaine [Lidoderm] 5 % Adhesive Patch,Medicated 2 patch .QHS Rx Instructions: 2 patches lower back losartan [Cozaar] 25 mg Tablet 25 mg PO DAILY docusate sodium [Colace] 100 mg Capsule 200 mg PO DAILY colchicine (gout) 0.6 mg Tablet 0.6 mg PO DAILY fluoxetine 20 mg Capsule 20 mg PO DAILY nystatin 1 billion unit Powder PO Rx Instructions: 2 times a day for 14 days insulin aspart U-100 [Novolog FlexPen U-100 Insulin] 100 unit/mL (3 mL) insulin pen subcut AC Rx Instructions: sliding scale Held enoxaparin 40 mg/0.4 mL Syringe 40 mg subcut DAILY Hold Instructions: Resume on 06/04/23. Discharge Instructions Additional Instructions: You are seen in the emergency department for your history of falling. Your CAT scan showed signs concerning for a small intercranial hemorrhage. Your repeat CAT scan showed no changes. Neurosurgery recommended holding your enoxaparin until 06/04/2023. He will also need to have a repeat CT scan performed on 06/02/2023. You also need to see neurosurgery at [facility] before 07/01/2023. If you fall again or develop headaches or any signs of seizures please return to the emergency department. For your pain please take medications as follows: 1. Take acetaminophen (Tylenol), 1,000 mg (two 500 mg tabs) every 6 hours
[2023-05-31] VITALS (36 sets, daily range): BP systolic 104–169; BP diastolic 42–85; PULSE 56–76; RESP 0–28; TEMP 36.8; O2SAT 92–98
[2023-05-31] MEDS: ACETAMINOPHEN 1,000 MG/100 ML BTL 400 MG IVPB (01:21)
--- NOTE | 2023-05-31 02:49 | DI.VRAD_ITS ---
PROCEDURE INFORMATION: Exam: CT Head Without Contrast Exam date and time: 05/31/2023 2:03 AM Age: 68 years old Clinical indication: Other: Fall; Re-check of potential bleed seen on earlier CT scan TECHNIQUE: Imaging protocol: Computed tomography of the head without contrast. Radiation optimization: All CT scans at this facility use at least one of these dose optimization techniques: automated exposure control; mA and/or kV adjustment per patient size (includes targeted exams where dose is matched to clinical indication); or iterative reconstruction. COMPARISON: CT HEAD CERVICAL SPINE WO 05/30/2023 7:42 PM, CT head 05/30/[address] brain 06/20/2021 FINDINGS: Chronic right MCA infarct unchanged from the prior study. Focus of hyperdensity in the right posterior frontal lobe white matter within the area of infarct is also unchanged measuring approximately the 1.9 x 2 cm on axial views. Favor hemorrhage but cannot exclude hyperdense laminar necrosis. No new hemorrhage seen. Generalized volume loss and periventricular white matter hypodensity consistent with chronic small vessel ischemic change. 9 mm hyperdense lesion in the white matter of the right frontal lobe anterior to the frontal horn stable since 2020. No associated edema. Ventricular size is concordant with degree of volume loss. Visualized intraorbital soft tissues are normal. Minimal mucosal thickening in the ethmoid sinuses. No air-fluid levels. 1.5 cm lipoma in the right frontal scalp. IMPRESSION: 1. Stable exam. 2. Chronic right frontal infarct containing 1.9 x 2 cm hyperdense focus unchanged from the prior study which may represent hemorrhage or a region of hyperdense laminar necrosis. No significant mass effect. 3. Stable 9 mm chronic hyperdense lesion in the right frontal lobe white matter anterior to the frontal horn. Dictated and Authenticated by: Ashley Reese MD. Ordering:JIAN Mathews MD
--- NOTE | 2023-05-31 22:09 | DI.CT_ITS ---
Exam(s) CT HEAD WO EXAM: CT HEAD WO CLINICAL HISTORY: recheck for potential bleed change at 2am. TECHNIQUE: Imaging Protocol: Axial computed tomography images with coronal and sagittal reformatted images were created and reviewed COMPARISON: CT CT HEAD WO from 06/20/[address] HEAD CERVICAL SPINE WO from 05/30/2023 FINDINGS: Ventricles and Extra axial spaces: Normal in size and morphology for the patient's age. Hemorrhage: There is again seen a right MCA distribution infarct unchanged from the prior examination . There is an area of hyperdensity associated with the infarct posteriorly which is unchanged. It m easures 1.9 x 2 cm. This is suspicious for hemorrhage however hyperdense laminar necrosis cannot be excluded. There is again seen a hyperdense lesion adjacent to the frontal horn of the right lateral ventricle. This is been unchanged compared to the prior examination dated 2020. There are areas of d ecreased attenuation in the white matter consistent with small vessel ischemic disease. No new hemor rhage is seen. Cerebral parenchyma: Please see the above section under hemorrhage. Midline shift: None. Brainstem/Cerebellum: Normal. Calvarium: Normal. Visualized Paranasal sinuses/Mastoids: Clear. Soft Tissues: There is a 1.9 x 0.8 cm lipoma in the subcutaneous tissues overlying the right frontal bone. IMPRESSION: 1. No change in appearance of the CT scan of the brain since 05/30/2023. 2. Right MCA distribution infarct with associated areas of hyperdensity which may represent hemorrhag e. Hyperdense laminar necrosis cannot be excluded. 3. Stable hyperdense lesion adjacent to the anterior horn of the right lateral ventricle. This is un changed since 2020. RADIATION DOSE DELIVERED: 810.81mGy.cm Total DLP DATA REPOSITORY: All CT scans at this facility are submitted to the National Radiology Data Registry (NRDR) Dose Index Registry (DIR) with the [employer] ([employer]). RADIATION OPTIMIZATION: All CT scans at this facility use at least one of these dose optimization te chniques: automated exposure control; mA and/or kV adjustment per patient size (includes targeted exa ms where dose is matched to clinical indication); or iterative reconstruction.
== END 2023-05-31 04:23 | disposition home or self-care (01) ==
PROVIDERS: Student in an Organized Health Care Education/Training Program; Emergency Provider Emergency Medicine; PCP Internal Medicine
DX: I61.9 Nontraumatic intracerebral hemorrhage, unspecified (principal); W06.XXXA Fall from bed, initial encounter; Y92.122 Bedroom in nursing home as the place of occurrence of the external cause
CPT/HCPCS: 80053; 93005; 96365; 96367; 99284; 70450; 72125; 73030; 85025; 85610; 85730; 93010; J0131; J1953

== ENCOUNTER → 2023-06-02 09:26 | Outpatient (CLI) | payer MEDICARE, SELFPAY ==
--- NOTE | 2023-06-02 | DI.CT_ITS ---
Exam(s) CT HEAD WO EXAM: CT HEAD WO CLINICAL HISTORY: CEREBRAL HEMORRHAGE. TECHNIQUE: Imaging Protocol: Axial computed tomography images with coronal and sagittal reformatted images were created and reviewed COMPARISON: CT CT HEAD WO from 06/20/[address] HEAD CERVICAL SPINE WO from 05/30/[address] HEAD WO from 05/31/2023 FINDINGS: Ventricles and Extra axial spaces: Normal in size and morphology for the patient's age. Cerebral parenchyma: Change in area of low attenuation in the right frontal lobe. High-density mater ial again seen posterior aspect of the infarct which may represent hemorrhage. Stable focus of high attenuation anteriorly to the anterior horn of the right lateral ventricle from 2020. No new areas o f infarct or hemorrhage. Midline shift: None. Brainstem/Cerebellum: Normal. Calvarium: Normal. Visualized Paranasal sinuses/Mastoids: Clear. Soft Tissues: Right frontal scalp lipoma again noted. IMPRESSION: Stable size of right MCA infarct. High-density material seen at the posterior aspect, unchanged, whi ch could represent acute hemorrhage. RADIATION DOSE DELIVERED: Total DLP DATA REPOSITORY: All CT scans at this facility are submitted to the National Radiology Data Registry (NRDR) Dose Index Registry (DIR) with the [employer] ([employer]). RADIATION OPTIMIZATION: All CT scans at this facility use at least one of these dose optimization te chniques: automated exposure control; mA and/or kV adjustment per patient size (includes targeted exa ms where dose is matched to clinical indication); or iterative reconstruction.
== END ==
PROVIDERS: PCP Internal Medicine; Visit Provider Emergency Medicine
DX: S06.360A Traumatic hemorrhage of cerebrum, unspecified, without loss of consciousness, initial encounter (principal); X58.XXXA Exposure to other specified factors, initial encounter
CPT/HCPCS: 70450

== ENCOUNTER 2023-06-12 16:15 | Outpatient (REF) | payer MEDICARE, SELFPAY ==
[2023-06-12 20:59] LABS: Bilirubin Negative (Negative); Blood Negative (Negative); Clarity Clear (Clear); Glucose Negative (Negative); Ketones Negative (Negative); Leukocyte Esterase Negative (Negative); Nitrite Negative (Negative); Specific Gravity 1.025 (1.005-1.025); Urobilinogen 0.2 mg/dL (Up to 0.2); pH 5.5 (5-8)
[2023-06-12 21:05] LABS: Bacteria Negative HPF (Negative); C & S Indicated? No; Crystals Negative HPF (Negative); Epithelial Cells Negative HPF (Negative); Mucus Trace (Negative); RBC Negative HPF (0-2); WBC 0-2 HPF (0-5)
== END 2023-06-12 16:16 | disposition home or self-care (01) ==
LOC: LBN 16:15
PROVIDERS: PCP Internal Medicine; Visit Provider Nurse Practitioner Adult Health
DX: E11.9 Type 2 diabetes mellitus without complications (principal)
CPT/HCPCS: 81003; 81015

== ENCOUNTER 2023-06-16 10:57 | Emergency (ER) | payer SELFPAY ==
[2023-06-16 11:00] VITALS: BP 153/68; PULSE 77; RESP 18; TEMP 37.1; O2SAT 94
[2023-06-16 11:04] VITALS: PULSE 77; RESP 20; TEMP 37.1
[2023-06-16 11:43] VITALS: O2SAT 94
--- NOTE | 2023-06-16 11:44 | W.ED.GENAD ---
Discharge Plan Disposition Patient Disposition: Home Condition: Stable Discharge Details Clinical Impression: COVID-19 Primary Care Provider: Pj Hennessy ED Provider: Stanton Amor Home Meds and New Rx's Prescriptions: New Paxlovid 300 mg (150 mg x 2)-100 mg tablets,dose pack See Rx Instructions .ROUTE .COMPLEX Qty: 30 0RF Rx Instructions: take TWO 150 mg tablets of nirmatrelvir with ONE 100 mg tablet of ritonavir twice daily for 5 days Continued Lantus Solostar U-100 Insulin 100 unit/mL (3 mL) insulin pen 26 unit subcut DAILY lisinopril 10 mg tablet 10 mg PO DAILY Qty: 90 3RF Acetaminophen [Tylenol] 650 mg PO Q6H PRN PRNQty: 0 0RF (DME) pen needle, diabetic [Pen Needle] 31 gauge x 5/16 needle See Rx Instructions .ROUTE .MEDSUPPLY Qty: 1200 0RF Rx Instructions: for us with insulin AC and HS glucagon HCl [Glucagon (HCl) Emergency Kit] 1 mg recon soln 1 mg subcut Q20M PRN Rx Instructions: until target blood sugar attained albuterol sulfate 2.5 mg /3 mL (0.083 %) Solution For Nebulization PRN acetaminophen 500 mg Tablet 1,000 mg PO TID baclofen 20 mg Tablet 20 mg PO .QHS aspirin 81 mg Tablet 81 mg PO DAILY gabapentin 600 mg Tablet 600 mg PO .QPM melatonin 3 mg Tablet 6 mg PO .24HR PRN lidocaine [Lidoderm] 5 % Adhesive Patch,Medicated 2 patch .QHS Rx Instructions: 2 patches lower back losartan [Cozaar] 25 mg Tablet 50 mg PO DAILY docusate sodium [Colace] 100 mg Capsule 200 mg PO DAILY fluoxetine 20 mg Capsule 20 mg PO DAILY nystatin 1 billion unit Powder PO Rx Instructions: 2 times a day for 14 days insulin aspart U-100 [Novolog FlexPen U-100 Insulin] 100 unit/mL (3 mL) insulin pen subcut AC Rx Instructions: sliding scale Held colchicine (gout) 0.6 mg Tablet 0.6 mg PO DAILY Hold Instructions: Resume on 06/27/23. enoxaparin 40 mg/0.4 mL Syringe 40 mg subcut DAILY Hold Instructions: Resume on 06/16/29. Hold as per transfer med list that was provided today Patient Comments: med still on hold per H/R med list. 06/16/23 Discharge Instructions Instructions: COVID-19 (Coronavirus Disease 2019) (ED) Additional Instructions: Please drink plenty of fluids to stay hydrated. Please allow for plenty of rest. Take Paxlovid as prescribed. Your medication list from the rehab facility noted you are currently holding enoxaparin. Please be sure to discuss when to restart this medication with your treating provider at the rehab facility. Hold your colchicine while taking Paxlovid. Please contact your primary care physician to arrange follow-up. Return to the ER immediately for any worsening or new concerning symptoms. Referrals: Pj Hennessy [Primary Care Provider] - Medical Decision Making [id number]- 68-year-old male with history of COPD, tested positive for COVID 2 days ago, at [facility] rehab where they are having a covid outbreak, sent for further evaluation. Patient is saturating in the mid 90s on low-flow nasal cannula oxygen. He is in no respiratory distress. Patient had outpatient labs performed today and has normal creatinine. I reviewed patient's prescribed medication with pharmacy regarding potential interactions and plan is to initiate treatment with Paxlovid. Pharmacy does note interaction with colchicine. I will hold colchicine while patient is on Paxlovid. HPI General Mode of arrival: EMS. Date/Time Provider Initiated Documentation: 06/16/23 11:02. Limitations to Documentation: no limitations. Information obtained by: EMS. HPI Narrative: 68-year-old male with multiple medical problems including history of COPD, CVA, hypertension, here with cough. Patient was sent by the nursing rehab facility with concern for cough. He did test positive for COVID 2 days ago and there is an outbreak at the rehab facility. senior living nurse was questioning whether a chest x-ray would be warranted. Patient has not been started on Paxlovid. Patient notes he does have a cough and intermittently short of breath. He denies chest pain. Patient denies fever. Patient notes he is not typically on oxygen but has used nasal cannula oxygen over the past couple days. Related Data Home Medications Medication Instructions Recorded Confirmed Acetaminophen [Tylenol] 650 mg PO Q6H PRN PRN ##0 06/21/21 06/16/23 pen needle, diabetic 31 gauge x #1,200 ea 06/21/21 08/14/21 5/16 (Pen Needle) insulin glargine 100 unit/mL (3 26 unit subcut DAILY 08/14/21 06/16/23 mL) subcutaneous pen (Lantus Solostar U-100 Insulin) lisinopril 10 mg tablet 10 mg PO DAILY #90 tabs 08/14/21 06/16/23 acetaminophen 500 mg tablet 1,000 mg PO TID 05/30/23 06/16/23 albuterol sulfate 2.5 mg/3 mL mg PRN 05/30/23 (0.083 %) solution for nebulization aspirin 81 mg tablet 81 mg PO DAILY 05/30/23 06/16/23 baclofen 20 mg tablet 20 mg PO .QHS 05/30/23 06/16/23 colchicine (gout) 0.6 mg tablet 0.6 mg PO DAILY 05/30/23 06/16/23 docusate sodium 100 mg capsule 200 mg PO DAILY 05/30/23 06/16/23 (Colace) enoxaparin 40 mg/0.4 mL 40 mg subcut DAILY 05/30/23 06/16/23 subcutaneous syringe fluoxetine 20 mg capsule 20 mg PO DAILY 05/30/23 06/16/23 gabapentin 600 mg tablet 600 mg PO .QPM 05/30/23 06/16/23 insulin aspart U-100 100 unit/mL subcut AC 05/30/23 (3 mL) subcutaneous pen (Novolog FlexPen U-100 Insulin aspart) lidocaine 5 % topical patch 2 patch .QHS 05/30/23 05/30/23 (Lidoderm) losartan 25 mg tablet (Cozaar) 50 mg PO DAILY 05/30/23 06/16/23 melatonin 3 mg tablet 6 mg PO .24HR PRN 05/30/23 06/16/23 nystatin 1 billion unit oral powder unit PO 05/30/23 glucagon HCl 1 mg solution for 1 mg subcut Q20M PRN 06/16/23 06/16/23 injection (Glucagon (HCl) Emergency Kit) nirmatrelvir 300 mg (150 mg See Rx Instructions PO .COMPLEX 06/16/23 x2)-ritonavir 100 mg tablet,dose #30 dose pk pack (Paxlovid) Previous Rx's Medication Instructions Recorded Acetaminophen [Tylenol] 650 mg PO Q6H PRN PRN ##0 10/28/21 pen needle, diabetic 31 gauge x #1,200 ea 06/21/21 5/16 (Pen Needle) lisinopril 10 mg tablet 10 mg PO DAILY #90 tabs 08/14/21 nirmatrelvir 300 mg (150 mg See Rx Instructions PO .COMPLEX 06/16/23 x2)-ritonavir 100 mg tablet,dose #30 dose pk pack (Paxlovid) Allergies Allergy/AdvReac Type Severity Reaction Status Date / Time No Known Allergies Allergy Unverified 05/30/23 21:10 General Stated Complaint: RespSymp JAQUAN: 4 Review of Systems All systems reviewed & are unremarkable except as noted in HPI and below Constitutional Constitutional: Denies fever(s) Cardiovascular Cardiovascular: Denies chest pain and Reports dyspnea Respiratory Respiratory: Reports cough and Reports dyspnea PFSH All Active Problems (Updated 06/16/23 @ 11:55 by Stanton Amor MD) COVID-19 (Acute) COPD (chronic obstructive pulmonary disease) (Chronic) Hemorrhagic stroke (Acute) Hypertension (Chronic) Discharge planning issues (Acute) DVT prophylaxis (Acute) Obesity (BMI 30-39.9) (Chronic) Diabetes mellitus (Chronic) Cerebral hemorrhage (Acute) Medical History Hyperlipidemia Chronic cough Lung cancer Psoriasis Social History Smoking/Tobacco Use Status: Former Tobacco Use Smoking risk assessment performed?: Yes Alcohol Intake: never Drug use: Never Housing: retirement Do you feel safe at home: Yes Do you feel safe in your relationship?: Yes Exam Const General: cooperative and no acute distress HENMT Mouth: moist mucous membranes Eyes Conjunctivae: normal conjunctivae Sclera: normal sclerae Neck Neck: trachea midline and supple Resp Effort & Inspection: normal respiratory effort, not labored and not tachypneic Auscultation: crackles bilaterally, lung sounds not diminished, no rales and no rhonchi Cardio Rate: regular rate and not tachycardic Rhythm: regular rhythm GI Palpation: soft, not firm, no guarding, no masses, not rigid and nontender Skin General skin exam: no rashes or lesions noted Neuro General: patient alert, patient awake and tone normal Extrem General: no calf tenderness and no edema Psych Appearance: grossly normal Mental Status: mental status grossly normal Course Vital Signs Vital signs: Vital Signs Temperature 37.1 C 06/16/23 11:00 Pulse 77 06/16/23 11:00 Respiratory Rate 18 06/16/23 11:00 Blood Pressure 153/68 H 06/16/23 11:00 Pulse Oximetry 94 06/16/23 11:00 Temperature 37.1 C 06/16/23 11:04 Temperature Source Skin 06/16/23 11:04 Pulse 77 06/16/23 11:04 Respiratory Rate 20 06/16/23 11:04 Respiratory Effort Normal 06/16/23 11:04 Respiratory Depth Normal 06/16/23 11:04 Blood Pressure 153/68 H 06/16/23 11:00 Pulse Oximetry 94 06/16/23 11:43 Oxygen Delivery Method Nasal Cannula 06/16/23 11:43 Oxygen Flow Rate 1 06/16/23 11:43
[2023-06-16 12:06] LABS: Source Nasal/Nares
[2023-06-16 12:59] LABS: COVID-19 PCR POSITIVE (Negative)
== END 2023-06-16 13:28 | disposition home or self-care (01) ==
PROVIDERS: Emergency Provider Student in an Organized Health Care Education/Training Program; PCP Internal Medicine
DX: U07.1 COVID-19 (principal); J44.9 Chronic obstructive pulmonary disease, unspecified; I10 Essential (primary) hypertension; Z86.73 Personal history of transient ischemic attack (TIA), and cerebral infarction without residual deficits
CPT/HCPCS: 87426; 87635; 99283

== ENCOUNTER 2023-06-16 18:52 | Outpatient (REF) | payer MEDICARE, SELFPAY ==
[2023-06-16 19:18] LABS: Abs Immature Grans 0.09 10^3/uL (0.0-0.06); Absolute Basophil Count 0.04 10^3/uL (0.0-0.2); Absolute Eosinophil Count 0.11 10^3/uL (0.0-0.7); Absolute Lymphocyte Count 1.17 10^3/uL (1.2-3.4); Absolute Monocyte Count 0.69 10^3/uL (0.1-0.8); Absolute Neutrophil Count 5.62 10^3/uL (1.2-6.7); Basophils % 0.5; Eosinophils % 1.4; HCT 44.1 % (40.0-50.0); HGB 14.8 g/dL (13.5-17.5); Immature Grans % 1.2; Lymphocytes % 15.2; MCH 28.9 pg (27.0-33.0); MCHC 33.6 % (32.0-36.0); MCV 86 fL (80-95); MPV 10.2 fL (8.0-11.0); Monocytes % 8.9; Neutrophils % 72.8; Platelet Count 181 10^3/uL (130-400); RBC 5.12 10^6/uL (4.36-5.78); RDW 13.6 % (11.8-14.1); RDW-SD 42.8 fL; WBC 7.72 10^3/uL (4.4-10.8)
[2023-06-16 20:15] LABS: Anion Gap 6.8 mmol/L (3-11); BUN 17 mg/dL (7-18); CO2 29.2 mmol/L (21.0-32.0); CREATININE 0.7 mg/dL (0.70-1.30); Calcium 9.2 mg/dL (8.5-10.1); Chloride 103 mmol/L (98-107); Estimated GFR 99.12 (mL/min/1.73m2); Glucose 136 mg/dL (74-106); Potassium 4.1 mmol/L (3.5-5.1); Sodium 139 mmol/L (136-145)
== END 2023-06-16 18:53 | disposition home or self-care (01) ==
LOC: LBN 18:52
PROVIDERS: PCP Internal Medicine; Visit Provider Nurse Practitioner Adult Health
DX: I63.311 Cerebral infarction due to thrombosis of right middle cerebral artery (principal)
CPT/HCPCS: 80048; 85025

== ENCOUNTER → 2023-06-17 12:16 | Outpatient (CLI) | payer SELFPAY ==
--- NOTE | 2023-06-17 | DI.RAD_ITS ---
Exam(s) XR CHEST 2V PA LATERAL EXAM: XR CHEST 2V PA LATERAL CLINICAL HISTORY: SOB TECHNIQUE: 2D digital imaging was performed. AP and lateral views performed sitting. COMPARISON: CR,XR XR CHEST 2V PA LATERAL from 06/19/2021 FINDINGS: Exam limited by patient body habitus HEART: Normal size. Aorta: Not dilated. PULMONARY VASCULATURE: Normal. LUNGS: Clear. PLEURAL SPACE: No pleural effusion or pneumothorax. BONE:Unremarkable severe degenerative changes in the spine. IMPRESSION: No acute abnormality. DATA REPOSITORY: RADIATION DOSE DELIVERED:
== END ==
PROVIDERS: PCP Internal Medicine; Visit Provider Family Medicine
DX: R06.02 Shortness of breath (principal)
CPT/HCPCS: 71046

== ENCOUNTER 2023-08-04 08:08 | Emergency (ER) | payer MEDICARE, SELFPAY ==
[2023-08-04 08:08] VITALS: BP 209/173; PULSE 68; RESP 18; TEMP 36.8; O2SAT 95
--- NOTE | 2023-08-04 08:15 | DI.RAD_ITS ---
Exam(s) XR SHOULDER LT COMPLETE 2+V EXAM: XR SHOULDER LT COMPLETE 2+V CLINICAL HISTORY: Fall, Shoulder pian. TECHNIQUE: 2D digital imaging was performed. Three views. COMPARISON: CR,XR XR SHOULDER LT COMPLETE 2+V from 05/30/2023 FINDINGS: BONES: No acute fracture is present. No bony destructive lesion is seen. JOINTS: No dislocation present. Degenerative changes at glenoid and AC joint. SOFT TISSUE: Normal. IMPRESSION: No acute abnormality. DATA REPOSITORY: RADIATION DOSE DELIVERED:
--- NOTE | 2023-08-04 08:15 | DI.RAD_ITS ---
Exam(s) XR PELVIS AP XR FEMUR LT EXAM: XR PELVIS AP CLINICAL HISTORY: Left hip pain fall. TECHNIQUE: 2D digital imaging was performed. Single AP view the pelvis. AP and lateral views of th e femur. COMPARISON: CR XR FEMUR LT from 08/04/2023 FINDINGS: BONES: No acute fracture is present. No bony destructive lesion is seen. JOINTS: No dislocation present. Degenerative changes both hips with acetabular spurring. Knee is u nremarkable. SOFT TISSUE: Normal. IMPRESSION: Degenerative changes. No acute abnormality. DATA REPOSITORY: RADIATION DOSE DELIVERED:
--- NOTE | 2023-08-04 08:15 | DI.RAD_ITS ---
Exam(s) XR LUMBAR SPINE AP, LAT EXAM: XR LUMBAR SPINE AP, LAT CLINICAL HISTORY: Fall. TECHNIQUE: 2D digital imaging was performed. AP and cross-table lateral views. COMPARISON: No exams were available for comparison FINDINGS: Exam limited by suboptimal penetration on the lateral view BONES: No fracture or destructive lesion. Vertebral body heights are maintained. Endplate osteophyte s. Facet degenerative changes. DISKS: Mild narrowing of the L4-5 and L5-S1 discs. Remaining intervertebral disc spaces are maintain ed. ALIGNMENT: Lumbar spinal alignment is within normal limits. SOFT TISSUE: Normal. IMPRESSION: Degenerative changes. No acute abnormality. Limited exam. DATA REPOSITORY: RADIATION DOSE DELIVERED:
[2023-08-04 08:18] VITALS: BP 166/70
--- NOTE | 2023-08-04 08:20 | ED.GENADUL_ITS ---
Discharge Plan Disposition Patient Disposition: [facility] Condition: Stable Discharge Details Clinical Impression: Degenerative joint disease (DJD) of hip, Fall, Sprain of left shoulder Primary Care Provider: Pj Hennessy ED Provider: Margaret Madrigal Meds and New Rx's Prescriptions: Continued Lantus Solostar U-100 Insulin 100 unit/mL (3 mL) insulin pen 26 unit subcut DAILY lisinopril 10 mg tablet 10 mg PO DAILY Qty: 90 3RF Acetaminophen [Tylenol] 650 mg PO Q6H PRN PRNQty: 0 0RF (DME) pen needle, diabetic [Pen Needle] 31 gauge x 5/16 needle See Rx Instructions .ROUTE .MEDSUPPLY Qty: 1200 0RF Rx Instructions: for us with insulin AC and HS glucagon HCl [Glucagon (HCl) Emergency Kit] 1 mg recon soln 1 mg subcut Q20M PRN Rx Instructions: until target blood sugar attained Anoro Ellipta 62.5-25 mcg/actuation blister with device 1 inh INHALATION DAILY Patient Comments: Inhale 1 puff as directed once a day sulfamethoxazole-trimethoprim [Bactrim] 400-80 mg tablet 2 tab PO BID Rx Instructions: end 08/13/23 duloxetine [Cymbalta] 20 mg capsule,delayed release(DR/EC) 20 mg PO DAILY mupirocin 2 % ointment 1 applic topical BID sennosides [Natural Senna Laxative] 8.6 mg tablet 17.2 mg PO QHS simvastatin 20 mg tablet 20 mg PO QHS albuterol sulfate 2.5 mg /3 mL (0.083 %) Solution For Nebulization 2.5 mg continuous nebulization Q4H PRN acetaminophen 500 mg Tablet 1,000 mg PO TID baclofen 20 mg Tablet 20 mg PO .QHS aspirin 81 mg Tablet 81 mg PO DAILY gabapentin 600 mg Tablet 600 mg PO .QPM melatonin 3 mg Tablet 6 mg PO .24HR PRN lidocaine [Lidoderm] 5 % Adhesive Patch,Medicated 2 patch transdermal .QHS Rx Instructions: 2 patches lower back losartan [Cozaar] 25 mg Tablet 50 mg PO DAILY docusate sodium [Colace] 100 mg Capsule 200 mg PO DAILY colchicine 0.6 mg Tablet 0.6 mg PO DAILY Hold Instructions: Resume on 06/27/23. fluoxetine 20 mg Capsule 20 mg PO DAILY enoxaparin 40 mg/0.4 mL Syringe 40 mg subcut DAILY Hold Instructions: Resume on 06/16/29. Hold as per transfer med list that was provided today Patient Comments: med still on hold per H/R med list. 06/16/23 insulin aspart U-100 [Novolog FlexPen U-100 Insulin] 100 unit/mL (3 mL) insulin pen 1 sliding scale dose subcut AC Rx Instructions: sliding scale Discharge Instructions Instructions: Osteoarthritis (ED), Fall Prevention for Older Adults (ED), Urinary Tract Infection in Older Adults (ED) Additional Instructions: X-rays show no acute fracture. Urinalysis showed does show evidence of urinary tract infection. He is to take the antibiotic with yogurt or probiotic as directed. Follow up with primary care provider in 3-5 days. Return to ED sooner if any worsening or concerns. Increase oral fluids. Please take your previous medications as prescribed. Referrals: Pj Hennessy [Primary Care Provider] - 5 days Discharge Data Discharge Date/Time-TO BE ENTERED AT DEPARTURE: 08/04/23 11:35 Medical Decision Making <Margaret Madrigal NP - Last Filed: 08/04/23 15:44> 68-year-old male with past medical history of CVA with left-sided deficits, hyperlipidemia, type 2 diabetes mellitus, obesity, hypertension who presents after a witnessed mechanical fall onto his buttocks with no head injury no loss of consciousness. Denies any headache or dizziness nor blurry vision. Patient presents with a sling on complaining of left shoulder burning, and left hip pain. Distal CMS is intact. No obvious deformity noted. Patient took 2 Tylenol on scene prior to arrival. Vital signs are stable he is alert and oriented x 3. No focal neurodeficits noted. He denies any chest pain abdominal pain shortness of breath. X-ray ED hip fracture series ordered, left shoulder and limited L-spine x-ray ordered. Nothing acute on the x-rays, L-spine is a limited exam however no obvious acute fractures. Will discuss x-ray results with patient and family. Will arrange for transportation if needed. Patient has remained alert and oriented and at baseline for the remainder of the stay. Patient is hemodynamically stable. Upon further conversation with patient's she is requesting blood work and urinalysis because patient has small amount of dysuria at the end of his urination. Patient did not mention this on initial exam. He continues to be alert and oriented x 3 and hemodynamically stable. I did offer care management which patient's refused at this time. Did discuss x-ray results they verbalized understanding. CBC CMP urinalysis ordered. CBC shows no leukocytosis, positive left shift with absolute neutrophils 6.90 lymphocytes 1.06, urinalysis shows trace leukocytes 10-20 WBCs, pending culture at this time. Will treat empirically for UTI with cephalexin 500 mg twice daily. Patient [facility] via [facility]. This text was generated using [employer] system, please disregard any oddities of phrase or misspellings. Medical Records Medical records reviewed: Yes I reviewed the patient's medical records. Lab Data Lab results reviewed: Yes I reviewed the patient's lab results. Labs: 08/04/23 10:20 Urine - Reflex from Ua Urine Culture - Pending Laboratory Tests Range/Units 08/04/23 08/04/23 10:20 10:22 WBC (4.4-10.8) 10^3/uL 8.82 RBC (4.36-5.78) 10^6/uL 4.92 Hgb (13.5-17.5) g/dL 14.3 Hct (40.0-50.0) % 41.9 MCV (80-95) fL 85 MCH (27.0-33.0) pg 29.1 MCHC (32.0-36.0) % 34.1 RDW (11.8-14.1) % 12.5 Plt Count (130-400) 10^3/uL 212 MPV (8.0-11.0) fL 9.8 Immature Gran % 0.8 Neutrophils % 78.2 Lymphocytes % 12.0 Monocytes % 6.8 Eosinophils % 1.6 Basophils % 0.6 Nucleated RBC % (0.0-0.3) % 0.0 Absolute Neutrophils (1.2-6.7) 10^3/uL 6.90 H Absolute Lymphocytes (1.2-3.4) 10^3/uL 1.06 L Absolute Monocytes (0.1-0.8) 10^3/uL 0.60 Absolute Eosinophils (0.0-0.7) 10^3/uL 0.14 Absolute Basophils (0.0-0.2) 10^3/uL 0.05 Sodium (136-145) mmol/L 138 Potassium (3.5-5.1) mmol/L 4.6 Chloride (98-107) mmol/L 102 Carbon Dioxide (21.0-32.0) mmol/L 29.7 Anion Gap (3-11) mmol/L 6.3 BUN (7-18) mg/dL 14 Creatinine (0.70-1.30) mg/dL 0.7 Est GFR (CKD-EPI 2020) (mL/min/1.73m2) 99.12 Glucose (74-106) mg/dL 136 H Calcium (8.5-10.1) mg/dL 9.1 Total Bilirubin (0.2-1.0) mg/dL 0.8 AST (15-37) U/L 8 L ALT (16-63) U/L 12 L Alkaline Phosphatase (46-116) U/L 71 Total Protein (6.4-8.2) g/dL 6.6 Albumin (3.4-5.0) g/dL 3.2 L Urine Color (Yellow) Yellow Urine Clarity (Clear) Clear Urine pH (5-8) 6.0 Ur Specific [place] (1.005-1.025) 1.020 Urine Protein (Negative) mg/dL 30 H Urine Ketones (Negative) mg/dL Negative Urine Blood (Negative) Negative Urine Nitrite (Negative) Negative Urine Bilirubin (Negative) Negative Urine Urobilinogen (Up to 0.2) mg/dL 1.0 H Ur Leukocyte Esterase (Negative) Trace H Urine RBC (0-2) HPF Negative Urine WBC (0-5) HPF 10-20 H Ur Epithelial Cells (Negative) HPF Rare Urine Crystals (Negative) HPF Negative Urine Bacteria (Negative) HPF Rare Urine Casts (Negative) LPF 0-2 Hyaline Urine Mucus (Negative) Negative Ur Culture Indicated? Yes Urine Glucose (Negative) mg/dL Negative <Stanton Amor MD - Last Filed: 08/15/23 07:33> Date: 08/04/23 Time: 09:45 Note: Patient seen, examined, and discussed with EDILSON Madrigal. I agree with treatment plan as discussed/documented. HPI <Margaret Madrigal NP - Last Filed: 08/04/23 15:44> General Mode of arrival: EMS . Date/Time Provider Initiated Documentation: 08/04/23 08:16 . Limitations to Documentation: no limitations . Information obtained by: patient, EMS, RN notes reviewed and old records reviewed . HPI Narrative: 68-year-old male with past medical history of CVA with left-sided deficits, hyperlipidemia, type 2 diabetes mellitus, obesity, hypertension who presents after a witnessed mechanical fall onto his buttocks with no head injury no loss of consciousness. Denies any headache or dizziness nor blurry vision. Patient presents with a sling on complaining of left shoulder burning, and left hip pain. Distal CMS is intact. No obvious deformity noted. Patient took 2 Tylenol on scene prior to arrival. Vital signs are stable he is alert and oriented x 3. No focal neurodeficits noted. He denies any chest pain abdominal pain shortness of breath. Related Data Home Medications Medication Instructions Recorded Confirmed Acetaminophen [Tylenol] 650 mg PO Q6H PRN PRN ##0 06/21/21 08/04/23 pen needle, diabetic 31 gauge x #1,200 ea 06/21/21 08/04/23 5/16 (Pen Needle) insulin glargine 100 unit/mL (3 26 unit subcut DAILY 08/14/21 08/04/23 mL) subcutaneous pen (Lantus Solostar U-100 Insulin) lisinopril 10 mg tablet 10 mg PO DAILY #90 tabs 08/14/21 08/04/23 acetaminophen 500 mg tablet 1,000 mg PO TID 05/30/23 08/04/23 albuterol sulfate 2.5 mg/3 mL 2.5 mg continuous nebulization Q4H 05/30/23 (0.083 %) solution for nebulization PRN aspirin 81 mg tablet 81 mg PO DAILY 05/30/23 08/04/23 baclofen 20 mg tablet 20 mg PO .QHS 05/30/23 08/04/23 colchicine 0.6 mg tablet 0.6 mg PO DAILY 05/30/23 08/04/23 docusate sodium 100 mg capsule 200 mg PO DAILY 05/30/23 08/04/23 (Colace) enoxaparin 40 mg/0.4 mL 40 mg subcut DAILY 05/30/23 08/04/23 subcutaneous syringe fluoxetine 20 mg capsule 20 mg PO DAILY 05/30/23 08/04/23 gabapentin 600 mg tablet 600 mg PO .QPM 05/30/23 08/04/23 insulin aspart U-100 100 unit/mL 1 sliding scale dose subcut AC 05/30/23 08/04/23 (3 mL) subcutaneous pen (Novolog FlexPen U-100 Insulin aspart) lidocaine 5 % topical patch 2 patch transdermal .QHS 05/30/23 08/04/23 (Lidoderm) losartan 25 mg tablet (Cozaar) 50 mg PO DAILY 05/30/23 08/04/23 melatonin 3 mg tablet 6 mg PO .24HR PRN 05/30/23 08/04/23 glucagon HCl 1 mg solution for 1 mg subcut Q20M PRN 06/16/23 08/04/23 injection (Glucagon (HCl) Emergency Kit) duloxetine 20 mg capsule,delayed 20 mg PO DAILY 08/04/23 08/04/23 release (Cymbalta) mupirocin 2 % topical ointment 1 applic topical BID 08/04/23 08/04/23 sennosides 8.6 mg tablet (Natural 17.2 mg PO QHS 08/04/23 08/04/23 Senna Laxative) simvastatin 20 mg tablet 20 mg PO QHS 08/04/23 08/04/23 sulfamethoxazole 400 2 tab PO BID 08/04/23 08/04/23 mg-trimethoprim 80 mg tablet (Bactrim) umeclidinium 62.5 mcg-vilanterol 1 inh inhalation DAILY 08/04/23 08/04/23 25 mcg/actuation powdr for inhalation (Anoro Ellipta) Previous Rx's Medication Instructions Recorded Acetaminophen [Tylenol] 650 mg PO Q6H PRN PRN ##0 06/21/21 pen needle, diabetic 31 gauge x #1,200 ea 06/21/21 5/16 (Pen Needle) lisinopril 10 mg tablet 10 mg PO DAILY #90 tabs 08/14/21 Allergies Allergy/AdvReac Type Severity Reaction Status Date / Time No Known Allergies Allergy Unverified 08/04/23 08:15 General Stated Complaint: Fall/Non TraumaCriteria JAQUAN: 3 Review of Systems <Margaret Madrigal NP - Last Filed: 08/04/23 15:44> All systems reviewed & are unremarkable except as noted in HPI and below PFSH <Margaret Madrigal NP - Last Filed: 08/04/23 15:44> All Active Problems (Updated 08/04/23 @ 10:15 by Margaret Madrigal NP) Sprain of left shoulder (Acute) Fall (Acute) Degenerative joint disease (DJD) of hip (Acute) COVID-19 (Acute) COPD (chronic obstructive pulmonary disease) (Chronic) Hemorrhagic stroke (Acute) Hypertension (Chronic) Discharge planning issues (Acute) DVT prophylaxis (Acute) Obesity (BMI 30-39.9) (Chronic) Diabetes mellitus (Chronic) Cerebral hemorrhage (Acute) Medical History Hyperlipidemia Chronic cough Lung cancer Psoriasis Social History Smoking/Tobacco Use Status: Former Tobacco Use Smoking risk assessment performed?: Yes Alcohol Intake: never Drug use: Never Substance use type: does not use Housing: correction Do you feel safe at home: No Do you feel safe in your relationship?: Yes Additional Social history: pt feels like he isnt getting taken care of at the rehab across the street. Exam <Margaret Madrigal NP - Last Filed: 08/04/23 15:44> Narrative Exam Narrative: General: Well Developed, Awake and Alert, conversant. Skin: Warm and Dry HEENT: Head: No palpable deformities, Normocephalic Eyes: Pupils PERRLA, EOM's intact. No periorbital eccymosis or step off Ears: Canal patent. Tympanic membranes are clear . No sprague's sign, no hemptympanum. Nose/Face: Atraumatic. Facial bones nontender to palpation and stable with manipulation. Mouth/Throat: No intraoral trauma. Teeth and mandible are intact. Neck: No midline tenderness, no step off, no deformity to palpation of C-spine. Trachea midline. Chest: No surface trauma. Nontender without crepitus or deformity. Lungs clear to ausculatation bilaterally. Heart: RRR, no rubs, murmurs or gallop. Abdomen: He does have a covered wound noted to his right lower quadrant with surrounding erythema. He reports that is cultured MRSA. No abrasions, ecchymosis, or surface trauma. Nondistended. Nontender to palpation no guarding, rebound, or rigidity. Pelvis: Nontender to palpation and stable to compression. Femoral pulses strong and equal Extremities: Erythemic ecchymosis noted to the left posterior shoulder, sensation intact. Peripheral pulses intact and equal. Neuro: ANO x4, GCS 15, cranial nerves II through XII intact. Strength decreased 3+ on the left which is at patient's baseline. To upper and lower extremity. Reflexes are symmetric. Course <Margaret Madrigal NP - Last Filed: 08/04/23 15:44> Vital Signs Vital signs: Vital Signs Temperature 36.8 C 08/04/23 08:08 Pulse 68 08/04/23 08:08 Respiratory Rate 18 08/04/23 08:08 Blood Pressure 209/173 H 08/04/23 08:08 Pulse Oximetry 95 08/04/23 08:08 Temperature 36.8 C 08/04/23 08:08 Pulse 68 08/04/23 08:08 Respiratory Rate 18 08/04/23 08:08 Blood Pressure 166/70 H 08/04/23 08:18 Blood Pressure Position Sitting 08/04/23 08:08 Pulse Oximetry 95 08/04/23 08:08 Oxygen Delivery Method Room Air 08/04/23 08:08 Oxygen Flow Rate 0 08/04/23 08:08 Pain Level 6 08/04/23 08:08
[2023-08-04 10:24] LABS: Bilirubin Negative (Negative); Blood Negative (Negative); Clarity Clear (Clear); Glucose Negative (Negative); Ketones Negative (Negative); Leukocyte Esterase Trace (Negative); Nitrite Negative (Negative)
[2023-08-04 10:33] LABS: Epithelial Cells Rare HPF (Negative); RBC Negative HPF (0-2)
[2023-08-04 10:34] LABS: Bacteria Rare HPF (Negative); C & S Indicated? Yes; Casts 0-2 Hyaline LPF (Negative); Crystals Negative HPF (Negative); Mucus Negative (Negative)
[2023-08-04 10:43] LABS: Abs Immature Grans 0.07 10^3/uL (0.0-0.06); Absolute Basophil Count 0.05 10^3/uL (0.0-0.2); Absolute Eosinophil Count 0.14 10^3/uL (0.0-0.7); Absolute Lymphocyte Count 1.06 10^3/uL (1.2-3.4); Basophils % 0.6; Eosinophils % 1.6; HCT 41.9 % (40.0-50.0); HGB 14.3 g/dL (13.5-17.5); Immature Grans % 0.8; MCH 29.1 pg (27.0-33.0); MCHC 34.1 % (32.0-36.0); MCV 85 fL (80-95); MPV 9.8 fL (8.0-11.0); Monocytes % 6.8; Neutrophils % 78.2; Platelet Count 212 10^3/uL (130-400); RBC 4.92 10^6/uL (4.36-5.78); RDW 12.5 % (11.8-14.1); RDW-SD 38.9 fL; WBC 8.82 10^3/uL (4.4-10.8)
[2023-08-04] MEDS: Cephalexin 500 MG CAP PO (10:57)
[2023-08-04 11:00] LABS: ALT 12 U/L (16-63); AST 8 U/L (15-37); Albumin 3.2 g/dL (3.4-5.0); Alkaline Phosphatase 71 U/L (46-116); Anion Gap 6.3 mmol/L (3-11); BUN 14 mg/dL (7-18); Bilirubin, Total 0.8 mg/dL (0.2-1.0); CO2 29.7 mmol/L (21.0-32.0); CREATININE 0.7 mg/dL (0.70-1.30); Calcium 9.1 mg/dL (8.5-10.1); Chloride 102 mmol/L (98-107); Estimated GFR 99.12 (mL/min/1.73m2); Glucose 136 mg/dL (74-106); Potassium 4.6 mmol/L (3.5-5.1); Sodium 138 mmol/L (136-145); Total Protein 6.6 g/dL (6.4-8.2)
[2023-08-04 11:05] VITALS: BP 160/73; PULSE 66; RESP 16; O2SAT 93
[2023-08-04] MEDS: Cephalexin 500 MG CAP, 2 CAPS/BTL PO (11:12)
== END 2023-08-04 11:35 | disposition skilled nursing facility (03) ==
PROVIDERS: Emergency Provider Registered Nurse Emergency; PCP Internal Medicine
DX: M16.12 Unilateral primary osteoarthritis, left hip (principal); S43.402A Unspecified sprain of left shoulder joint, initial encounter; I69.398 Other sequelae of cerebral infarction; E78.5 Hyperlipidemia, unspecified; I10 Essential (primary) hypertension; E11.9 Type 2 diabetes mellitus without complications; Z79.01 Long term (current) use of anticoagulants; Z79.4 Long term (current) use of insulin; Z79.84 Long term (current) use of oral hypoglycemic drugs; W18.39XA Other fall on same level, initial encounter
CPT/HCPCS: 36415; 73552; 80053; 99283; 72100; 72170; 73030; 81003; 81015; 85025; 87086

== ENCOUNTER 2023-08-08 10:25 | Outpatient (REF) | payer MEDICARE, SELFPAY | END 2023-08-08 10:26 | disposition home or self-care (01) | LOC: LBN 10:25 | PROVIDERS: PCP Internal Medicine; Visit Provider Family Medicine | DX: L03.90 Cellulitis, unspecified (principal) | CPT/HCPCS: 87077; 87070; 87186; 87205 ==

== ENCOUNTER 2023-12-23 15:14 | Outpatient (REF) | payer SELFPAY ==
[2023-12-23 12:05] LABS: Anion Gap 5.3 mmol/L (3-11); BUN 19 mg/dL (7-18); CO2 30.7 mmol/L (21.0-32.0); CREATININE 0.9 mg/dL (0.70-1.30); Calcium 8.5 mg/dL (8.5-10.1); Chloride 107 mmol/L (98-107); Estimated GFR 91.88 (mL/min/1.73m2); Glucose 248 mg/dL (74-106); Potassium 4.3 mmol/L (3.5-5.1); Sodium 143 mmol/L (136-145)
== END 2023-12-23 15:15 | disposition home or self-care (01) ==
LOC: LBN 15:14
PROVIDERS: PCP Internal Medicine; Visit Provider Family Medicine
DX: R68.89 Other general symptoms and signs (principal)
CPT/HCPCS: 80048

== ENCOUNTER 2023-12-30 07:48 | Outpatient (REF) | payer SELFPAY ==
[2023-12-30 09:05] LABS: Hemoglobin A1C 6.9 % (<5.7)
== END 2023-12-30 07:49 | disposition home or self-care (01) ==
LOC: LBN 07:48
PROVIDERS: PCP Internal Medicine; Visit Provider Nurse Practitioner Family
DX: E11.9 Type 2 diabetes mellitus without complications (principal)
CPT/HCPCS: 83036

== ENCOUNTER → 2024-01-12 02:32 | Outpatient (CLI) | payer MEDICAID, SELFPAY ==
--- NOTE | 2024-01-12 | DI.CT_ITS ---
Exam(s) CT BRAIN NECK CTA EXAM: CT BRAIN NECK CTA CLINICAL HISTORY: HX R ICA OCCLUSION, L ICA STENOSIS, STENOSIS CAROTID ARTERY. TECHNIQUE: Imaging Protocol: Axial CT angiography was performed with multi-slice acquisition and mu lti-planar and/or 3D reconstructions. CONTRAST MATERIAL: Intravenous: Omnipaque 350 Contrast volume:85 mL COMPARISON: CT CT HEAD WO from 06/02/2023 FINDINGS: CTA Neck W: Aortic arch anatomy: The aortic arch anatomy is conventional and there is no significant stenosis at the origin of the great vessels off of the aortic arch. No intimal flap evident. Anterior circulation: Both common carotid arteries ascend with normal luminal diameters. On the right side there is abundant plaque at the carotid bulb and ICA with occlusion of the right in ternal carotid artery at its origin. No flow seen within this vessel in the neck and skull base. Supraclinoid aspect of the right ICA is reconstituted in the intracranial compartment. On the opposite-left side there is mild plaque at the carotid bulb and more prominent plaque at the o rigin of the left internal carotid artery. Approximately 50 percent stenosis in the proximal left IC A. Above this level the left ICA is patent in the upper neck and skull base-carotid canal. Posterior circulation: Both vertebral arteries originate in conventional fashion off of the subclavian arteries and there is no obvious stenosis at the origin of the vertebral arteries. Both vertebral arteries exhibit normal luminal diameters within the foramen transversarium. There is calcification in the wall of both vertebral arteries at the skull base with some stenosis at this level but no occlusion. Both vertebral arteries contribute to the formation of the basilar artery at the skull base. CTA Brain W: Anterior circulation: The escobar of the cavernous sinuses are calcified. There does not appear to be a tight stenosis of th e left intracavernous ICA. There is also calcification noted in the supraclinoid aspects of both int ernal carotid arteries. Flow is reconstituted on the right side in the supraclinoid aspect of the ri ght ICA. Both A1 segments are patent and both anterior cerebral arteries are patent. There is no an eurysm at the level of the anterior communicating artery. Both middle cerebral arteries are patent. On the right side there are patent distal MCA vessels with in the large area of right MCA level CVA. Posterior circulation: The basilar artery ascends in the midline. Distally it gives off patent bilateral superior cerebella r arteries. Above this level the basilar artery terminates as patent bilateral posterior cerebral arteries. There is no evidence of aneurysm at the tip of the basilar artery nor elsewhere in the [id number] is. CT BRAIN: Large area of abnormal hypodensity in the right hemisphere territory of the right middle cerebral art aniket is noted, further increased in size from 06/02/2023 but there is presently no evidence of hemorrh age, intra or extra-axial at this level. Small hemorrhagic lacunar infarcts are noted in both thalam i. There are no ring enhancing lesions in the brain. No abnormal meningeal enhancement. IMPRESSION: 1. 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 Approximately 50 perce nt stenosis at the origin of the opposite-left internal carotid artery in the neck. 2. Patent vertebral arteries although there is calcified plaque in both vertebral arteries in the sk ull base as they come together to form the basilar artery. 3. Patent intracranial arteries. 4. Large area of nonhemorrhagic infarct in the territory of the right middle cerebral artery. No rochelle dence of hemorrhage. 5. No abnormal enhancing intracranial findings and no abnormal meningeal enhancement, focal nor diffu se. RADIATION DOSE DELIVERED: 2,394.7mGy.cm Total DLP DATA REPOSITORY: All CT scans at this facility are submitted to the National Radiology Data Registry (NRDR) Dose Index Registry (DIR) with the [employer] [place] [employer] (A[employer]). RADIATION OPTIMIZATION: All CT scans at this facility use at least one of these dose optimization te chniques: automated exposure control; mA and/or kV adjustment per patient size (includes targeted exa ms where dose is matched to clinical indication); or iterative reconstruction.
[2024-01-12] MEDS: Omnipaque 350 MG/ML 500 ML BTL-Imaging package 85 ML IJ (08:56)
[2024-01-12] MEDS: Normal Saline - Diluent 50 ML VIAL IJ (08:57)
== END ==
PROVIDERS: PCP Internal Medicine; Visit Provider Surgery Vascular Surgery
DX: I65.21 Occlusion and stenosis of right carotid artery (principal)
CPT/HCPCS: 70496; 70498

== ENCOUNTER 2024-02-17 14:01 | Outpatient (REF) | payer MEDICAID, SELFPAY ==
[2024-02-17 15:39] LABS: Abs Immature Grans 0.11 10^3/uL (0.0-0.06); Absolute Basophil Count 0.06 10^3/uL (0.0-0.2); Absolute Eosinophil Count 0.16 10^3/uL (0.0-0.7); Absolute Lymphocyte Count 1.37 10^3/uL (1.2-3.4); Absolute Monocyte Count 0.64 10^3/uL (0.1-0.8); Absolute Neutrophil Count 6.92 10^3/uL (1.2-6.7); Basophils % 0.6 %; Eosinophils % 1.7 %; HCT 42.4 % (40.0-50.0); HGB 14.6 g/dL (13.5-17.5); Immature Grans % 1.2 %; Lymphocytes % 14.8 %; MCH 29.5 pg (27.0-33.0); MCHC 34.4 % (32.0-36.0); MCV 86 fL (80-95); MPV 10.8 fL (8.0-11.0); Monocytes % 6.9 %; Neutrophils % 74.8 %; Platelet Count 198 10^3/uL (130-400); RBC 4.95 10^6/uL (4.36-5.78); RDW 12.6 % (11.8-14.1); RDW-SD 39.2 fL; WBC 9.26 10^3/uL (4.4-10.8)
[2024-02-17 15:57] LABS: ALT 17 U/L (16-63); AST 7 U/L (15-37); Albumin 3.4 g/dL (3.4-5.0); Alkaline Phosphatase 69 U/L (46-116); Anion Gap 8.3 mmol/L (3-11); BUN 17 mg/dL (7-18); Bilirubin, Total 0.92 mg/dL (0.2-1.0); CO2 29.7 mmol/L (21.0-32.0); CREATININE 0.8 mg/dL (0.70-1.30); Calcium 8.9 mg/dL (8.5-10.1); Chloride 103 mmol/L (98-107); Estimated GFR 95.21 (mL/min/1.73m2); Glucose 211 mg/dL (74-106); Potassium 4.4 mmol/L (3.5-5.1); Sodium 141 mmol/L (136-145); Total Protein 6.6 g/dL (6.4-8.2)
== END 2024-02-17 14:02 | disposition home or self-care (01) ==
LOC: LBN 14:01
PROVIDERS: PCP Internal Medicine; Visit Provider Family Medicine
DX: E87.8 Other disorders of electrolyte and fluid balance, not elsewhere classified (principal); E11.9 Type 2 diabetes mellitus without complications; R60.0 Localized edema
CPT/HCPCS: 80053; 85025

== ENCOUNTER 2024-04-15 17:35 | Outpatient (REF) | payer MEDICAID, SELFPAY ==
[2024-04-15 18:17] LABS: Abs Immature Grans 0.07 10^3/uL (0.0-0.06); Absolute Basophil Count 0.04 10^3/uL (0.0-0.2); Absolute Eosinophil Count 0.16 10^3/uL (0.0-0.7); Absolute Lymphocyte Count 1.46 10^3/uL (1.2-3.4); Absolute Monocyte Count 0.55 10^3/uL (0.1-0.8); Absolute Neutrophil Count 5.54 10^3/uL (1.2-6.7); Basophils % 0.5 %; HCT 40.7 % (40.0-50.0); HGB 13.7 g/dL (13.5-17.5); Immature Grans % 0.9 %; Lymphocytes % 18.7 %; MCH 29.3 pg (27.0-33.0); MCHC 33.7 % (32.0-36.0); MCV 87 fL (80-95); MPV 10.5 fL (8.0-11.0); Neutrophils % 70.9 %; Platelet Count 217 10^3/uL (130-400); RBC 4.67 10^6/uL (4.36-5.78); RDW 13.2 % (11.8-14.1); WBC 7.82 10^3/uL (4.4-10.8)
[2024-04-15 18:27] LABS: ALT 18 U/L (16-63); AST 14 U/L (15-37); Alkaline Phosphatase 68 U/L (46-116); Anion Gap 7.7 mmol/L (3-11); BUN 20 mg/dL (7-18); Bilirubin, Total 0.66 mg/dL (0.2-1.0); CO2 30.3 mmol/L (21.0-32.0); CREATININE 0.8 mg/dL (0.70-1.30); Calcium 8.5 mg/dL (8.5-10.1); Chloride 102 mmol/L (98-107); Estimated GFR 94.62 (mL/min/1.73m2); Glucose 198 mg/dL (74-106); Potassium 4.4 mmol/L (3.5-5.1); Sodium 140 mmol/L (136-145); Total Protein 6.1 g/dL (6.4-8.2)
== END 2024-04-15 17:36 | disposition home or self-care (01) ==
LOC: LBN 17:35
PROVIDERS: PCP Internal Medicine; Visit Provider Family Medicine
DX: E11.9 Type 2 diabetes mellitus without complications (principal)
CPT/HCPCS: 80053; 85025